=== PATIENT | male | born 1970 | race Caucasian/White ===

== ENCOUNTER 2022-02-04 06:58 | Outpatient (REF) | payer OTHER, SELFPAY ==
[2022-02-04 11:54] LABS: MANUAL DIFF FLAG NO
[2022-02-04 11:56] LABS: Appearance Urine CLOUDY; Color Urine YELLOW; Glucose Urine UA NEG (NEG); Leukocyte Esterase Urine NEG (NEG); Nitrite Urine NEG (NEG); PH 5.5 (5.0-8.0); Specific Gravity - Urine >= 1.030 (1.005-1.025); UACC Culture Trigger NO; Urine Blood TRACE (NEG); Urine Ketones 15 MG/DL (NEG); Urine Protein NEG (NEG-TRACE)
[2022-02-04 12:08] LABS: Basophils Absolute Auto 0.1 X10*3/uL (0.0-0.2); Basophils Percent Auto 1.3 % (0-2); Eosinophils Absolute Auto 0.1 X10*3/uL (0.0-0.4); Eosinophils Percent Auto 2.4 % (0-4); Hematocrit 44.4 % (42.0-52.0); Imm Gran Abs Auto 0.01 X10*3/uL (0.00-0.03); Imm Gran Pct Auto 0.2 % (0.0-0.4); Lymphocytes Absolute Auto 1.2 X10*3/uL (1.2-4.9); Lymphocytes Percent Auto 25.8 % (20-40); Mean Corpuscular HGB Conc 33.8 g/dl (31.0-36.0); Mean Corpuscular Volume 82.8 fL (80.0-98.0); Mean Platelet Volume 9.6 fL (9.4-12.4); Monocytes Absolute Auto 0.5 X10*3/uL (0.1-1.2); Monocytes Percent Auto 11.2 % (2-11); Neutrophils Absolute Auto 2.7 x10*3/uL (2.0-8.3); Neutrophils Percent Auto 59.1 % (45-73); Platelet Count 308 X10*3/uL (160-400); Red Blood Count 5.36 X10*6/uL (4.60-5.80); White Blood Count 4.5 X10*3/uL (4.8-10.8)
[2022-02-04 12:30] LABS: Alanine Aminotransferase 16 U/L (0-40); Albumin Level 4.5 g/dL (3.5-5.0); Alkaline Phosphatase 72 U/L (39-117); Anion Gap 15 (12-20); Aspartate Amino Transferase 15 U/L (5-37); Blood Urea Nitrogen 15 mg/dL (9-16); Calcium 9.3 mg/dL (8.4-10.2); Carbon Dioxide 24 mmol/L (22-29); Chloride 106 mmol/L (96-108); Cholesterol 187 mg/dL; Estimated Glomerular Filt Rate > 60; Glucose Fasting 89 mg/dL (60-99); HDL Cholesterol 39 mg/dL; LDL Cholesterol Calculated 128 mg/dl; Potassium 4.7 mmol/L (3.3-5.1); Sodium 140 mmol/L (135-145); Total Protein 6.8 g/dL (6.5-8.0); Triglycerides 100 mg/dL
[2022-02-04 12:36] LABS: Amorphous Sediment Urine 4+ /LPF; RBC Urine 0-2 /HPF (0)
[2022-02-04 12:42] LABS: Prostate Specific Antigen Scr 1.22 ng/mL (<0.05-4.0); TSH reflex Free T4 1.33 uIU/mL (0.32-4.0)
== END 2022-02-04 06:59 | disposition home or self-care (01) ==
LOC: HO.HMGCLDS 06:58
PROVIDERS: PCP Nurse Practitioner Family; Visit Provider Nurse Practitioner Family
DX: Z00.00 Encounter for general adult medical examination without abnormal findings (principal); Z12.5 Encounter for screening for malignant neoplasm of prostate
CPT/HCPCS: 36415; 80053; 80061; 81001; 84153; 84443; 85025

== ENCOUNTER 2022-03-18 06:40 | Outpatient (REF) | payer OTHER, SELFPAY ==
[2022-03-18 11:18] LABS: Urine Cytology See Pathology rpt
[2022-03-18 11:24] LABS: Appearance Urine Turbid; Color Urine Yellow; Glucose Urine UA Negative (Negative); Leukocyte Esterase Urine Negative (Negative); Nitrite Urine Negative (Negative); PH 5.5 (5.0-9.0); Specific Gravity - Urine 1.025 (1.005-1.025); Urine Blood Negative (Negative); Urine Ketones Negative (Negative); Urine Protein Negative (Neg-Trace)
[2022-03-18 11:54] LABS: Bilirubin Direct 0.3 mg/dL (0.0-0.5)
== END 2022-03-18 06:41 | disposition home or self-care (01) ==
LOC: HO.HMGCLDS 06:40
PROVIDERS: PCP Nurse Practitioner Family; Visit Provider Nurse Practitioner Family
DX: Z00.00 Encounter for general adult medical examination without abnormal findings (principal); R31.29 Other microscopic hematuria; R17 Unspecified jaundice
CPT/HCPCS: 36415; 81003; 82247; 82248; 87086; 88112

== ENCOUNTER 2022-07-05 10:04 | Outpatient (REF) | payer OTHER, SELFPAY ==
--- NOTE | ~2022-07-05 | XR_ITS ---
EXAMINATION: XR LUMBOSACRAL SPINE CLINICAL INFORMATION: Low back pain. COMPARISON: None TECHNIQUE: Three views of the lumbosacral spine. FINDINGS: No acute compression deformity or subluxation. Mild to moderate disc height loss and facet arthropathy at L5-S1. SI joints are symmetric. No significant paraspinal soft tissue abnormalities. XR/XR lumbar spine 2-3V IMPRESSION: 1. No acute compression deformity or subluxation. 2. Mild to moderate disc height loss and facet arthropathy at L5-S1.
== END 2022-07-05 10:05 | disposition home or self-care (01) ==
LOC: HO.HMGCX 10:04
PROVIDERS: Visit Provider Nurse Practitioner Family
DX: M54.50 Low back pain, unspecified (principal); G89.29 Other chronic pain
CPT/HCPCS: 72100

== ENCOUNTER 2022-10-13 11:17 | Outpatient (REF) | payer OTHER, SELFPAY ==
[2022-10-13 13:53] LABS: MANUAL DIFF FLAG NO
[2022-10-13 14:04] LABS: Basophils Absolute Auto 0.1 X10*3/uL (0.0-0.2); Basophils Percent Auto 0.9 % (0-2); Eosinophils Absolute Auto 0.1 X10*3/uL (0.0-0.4); Eosinophils Percent Auto 2.1 % (0-4); Hemoglobin 14.7 g/dl (14.0-18.0); Imm Gran Abs Auto 0.01 X10*3/uL (0.00-0.03); Imm Gran Pct Auto 0.2 % (0.0-0.4); Lymphocytes Absolute Auto 1.4 X10*3/uL (1.2-4.9); Lymphocytes Percent Auto 24.6 % (20-40); Mean Corpuscular Hemoglobin 25.2 pg (27.0-33.0); Mean Corpuscular Volume 78.9 fL (80.0-98.0); Mean Platelet Volume 9.5 fL (9.4-12.4); Monocytes Absolute Auto 0.6 X10*3/uL (0.1-1.2); Monocytes Percent Auto 10.8 % (2-11); Neutrophils Absolute Auto 3.5 x10*3/uL (2.0-8.3); Neutrophils Percent Auto 61.4 % (45-73); Platelet Count 357 X10*3/uL (160-400); Red Blood Count 5.83 X10*6/uL (4.60-5.80); Red Cell Distribution Width 14.2 % (11.0-16.0); White Blood Count 5.7 X10*3/uL (4.8-10.8)
[2022-10-13 14:25] LABS: Alanine Aminotransferase 14 U/L (0-40); Albumin Level 4.3 g/dL (3.5-5.0); Alkaline Phosphatase 86 U/L (39-117); Anion Gap 9 (12-20); Aspartate Amino Transferase 12 U/L (5-37); Bilirubin Total 1.4 mg/dL (0.0-1.0); Blood Urea Nitrogen 10 mg/dL (9-16); Calcium 9.7 mg/dL (8.4-10.2); Carbon Dioxide 32 mmol/L (22-29); Chloride 105 mmol/L (96-108); Estimated Glomerular Filt Rate > 60; Glucose Random 99 mg/dL (60-115); Iron 86 mcg/dL (45-160); Percent Iron Saturation 20 % (15-50); Potassium 4.5 mmol/L (3.3-5.1); Sodium 141 mmol/L (135-145); Total Iron Binding Capacity 438 mcg/dL (228-428); Total Protein 6.5 g/dL (6.5-8.0); Unsaturated Iron Binding 352 ug/dL
[2022-10-13 14:57] LABS: Ferritin 10 ng/mL (20-250); Folate 5.6 ng/mL (> or = 4.0); TSH reflex Free T4 2.14 uIU/mL (0.32-4.0); Vitamin B12 505 pg/mL (200-900)
[2022-10-16 04:19] LABS: A. Phagocytphilium DNA,RT-PCR NOT DETECTED (NOT DETECTED); Babesia Microti DNA, RT-PCR NOT DETECTED (NOT DETECTED); Borrelia Miyamotoi,DNA RT-PCR NOT DETECTED (NOT DETECTED); E.Chaffeensis DNA RT-PCR NOT DETECTED (NOT DETECTED); Lyme(Borrelia ssp)DNA RT-PCR NOT DETECTED (NOT DETECTED)
== END 2022-10-13 11:18 | disposition home or self-care (01) ==
LOC: HO.HMGCLDS 11:17
PROVIDERS: PCP Nurse Practitioner Family; Visit Provider Nurse Practitioner Family
DX: R53.83 Other fatigue (principal); E61.1 Iron deficiency; T14.8XXA Other injury of unspecified body region, initial encounter; W57.XXXA Bitten or stung by nonvenomous insect and other nonvenomous arthropods, initial encounter; Y93.9 Activity, unspecified; Y92.9 Unspecified place or not applicable; Y99.9 Unspecified external cause status
CPT/HCPCS: 36415; 80053; 82607; 82728; 82746; 83540; 84443; 85025; 87798; 87801

== ENCOUNTER 2022-10-24 09:00 | Outpatient (RCR) | payer OTHER, SELFPAY ==
--- NOTE | 2022-07-25 08:57 | MHC.PT.EP ---
[facility] [place] Office [place] Office [place] Office [address] Rebeca Lo [address] [phone] F: [phone] F: [phone] F: [phone] F: [phone] Physical Therapy Plan of Care Date of Evaluation: Date of Surgery: Diagnosis: low back pain Assessment: Patient is a 52 year old R handed male who presents with s/s consistent with low back pain. He works with daily job demands including seated work, woodworking, sapp playing. Patient past medical history includes meniscal surgeries with no residual symptoms. Current impairments include pain, posture, ROM, strength, flexibility, activity tolerance and functional mobility. Functional limitations include decreased ability to stand, bend, lift, walk, wood work, play music and perform more strenuous activities. Patient is motivated with good rehab potential. Skilled PT will address impairments and functional limitations in order to achieve goals. Frequency and Duration: The patient will be seen 2x/week for 5 weeks Short Term Goals: I with HEP - 2 weeks Pain free rotation to 75% b/l - 3 weeks 90/90 lacking 20 or less - 3 weeks Mcc Goals: Oswestry 12% or less - 5 weeks pain with ADLs, sitting or standing 1 hour - 3/10 or less - 5 weeks Able to resume hobbies 3/10 pain or less - 5 weeks Treatment Plan: Modalities to reduce pain, spasms and effusion. Manual therapy to restore motion and function. Therapeutic exercise to improve strength and flexibility. Neuromuscular re-education for posture and balance. Therapeutic activities to return to functional activities of daily living. Electronically signed by: Nico Deleon, PT Please sign and return to therapist. Thank you for your referral.
--- NOTE | 2022-12-12 08:18 | MHC.PT.DC ---
[facility] [place] Office [place] Office [place] Office [address] Rebeca Lo [address] [phone] F: [phone] F: [phone] F: [phone] F: [phone] Physical Therapy Discharge Report Diagnosis: low back pain Date of Surgery: Date of Evaluation: 07/25/22 Date of Discharge: 11/07/22 Treatments to Date: 5 Cancellations to Date: No Shows to Date: Discharge Status: Improved Function Independent with HEP Discharge Summary: Pt elected to continue with HEP after last visit and time off. 10/24/22: pain free rotation to 75%. 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 09/26/22: pt responding very well. sore from [place] at home. I with HEP at this time. we will progress as tolerated NV. 09/05/22: reduced program today due to a slip/fall while shoveling snow. sore shoulder, back and knee. assess response Nv. encouraged him to ice at home. 08/29/22: pt has been progressing well with HEP until the last week. We did add to program today and will progress HEP Nv. Patient is a 52 year old R handed male who presents with s/s consistent with low back pain. He works with daily job demands including seated work, woodworking, sapp playing. Patient past medical history includes meniscal surgeries with no residual symptoms. Current impairments include pain, posture, ROM, strength, flexibility, activity tolerance and functional mobility. Functional limitations include decreased ability to stand, bend, lift, walk, wood work, play music and perform more strenuous activities. Patient is motivated with good rehab potential. Skilled PT will address impairments and functional limitations in order to achieve goals. Electronically signed by: Nico Deleon, PT Please sign and return to therapist. Thank you for your referral.
== END 2022-12-12 09:30 | disposition home or self-care (01) ==
LOC: HO.PTCHIC 09:00
PROVIDERS: PCP Nurse Practitioner Family; Visit Provider Nurse Practitioner Family
DX: M54.50 Low back pain, unspecified (principal); G89.29 Other chronic pain
CPT/HCPCS: 97110; 97161

== ENCOUNTER 2022-12-12 07:45 | Day surgery (SDC) | payer OTHER, SELFPAY ==
[2022-12-08 12:19] VITALS: BMI 40.7
[2022-12-12 07:58] VITALS: BP 141/86; PULSE 68; RESP 16; TEMP 36.6; O2SAT 96; BMI 39.8
[2022-12-12] MEDS: Lactated Ringers 1,000 ML 100 ML IVCONT (08:16)
--- NOTE | 2022-12-12 09:20 | HO.ANESPROP2 ---
Documented by User: Giovanna Owen NP 12/09/22 12:41 HPI - Anesthesia Eval Consult details Narrative: 52yo M for Colonoscopy PMFSH Active Problems Active Problems: All Active Problems (Updated 12/08/22 @ 12:16 by Jennifer Jhaveri RN) Screening for colon cancer (Acute) Physical exam (Acute) Screening PSA (prostate specific antigen) (Acute) Elevated bilirubin (Acute) Microscopic hematuria (Acute) Pre-op examination (Acute) PTSD (post-traumatic stress disorder) (Acute) Chronic lower back pain (Acute) Fatigue (Acute) Iron deficiency (Acute) Past Medical History Medical History (Updated 12/08/22 @ 12:16 by Jennifer Jhaveri RN) Chronic low back pain Iron deficiency anemia PTSD (post-traumatic stress disorder) Family History Family History Father Mental health disorder Mother Mental health disorder Sister Mental health disorder Surgical History Surgical History History of appendectomy History of hemorrhoidectomy S/P lateral meniscal repair S/P tendon repair Social History Social History Housing: House Patient Tobacco Use Status: Former Tobacco user Quit Date: quit 12 years ago e-Cigarette/Vaping Use: Never Used Second Hand Smoke Exposure: No Use of substances other than those prescribed or required for medical reasons: No Advance Directives: No Advance Directives Information Provided: Yes Current occupational status: employed Current occupation: [employer] Current occupational exposures/hazards: Yes Cognitive needs: No Hearing needs: No Vision needs: No Meds Allergies Allergy/AdvReac Type Severity Reaction Status Date / Time codeine Allergy Unknown SOB, Verified 10/13/22 12:09 throat swelling Exam Exam Date and Time: December 09, 2022 1240 Height,Weight and Vital Signs: Height 6 ft 2 in Weight 143.789 kg Pertinent Lab Results Pertinent Lab Results: Laboratory Tests 10/13/22 10/13/22 11:23 11:23 WBC 5.7 Hgb 14.7 Hct 46.0 Plt Count 357 Sodium 141 Potassium 4.5 Chloride 105 Carbon Dioxide 32 H BUN 10 Creatinine 0.98 Assessment and Plan Assessment Anesthesia Assessment: Chart Reviewed Documented by User: Lori Hawley DO 12/12/22 09:42 [facility] Past Medical History Medical History (Updated 12/08/22 @ 12:16 by Jennifer Jhaveri RN) Chronic low back pain Iron deficiency anemia PTSD (post-traumatic stress disorder) Family History Family History Father Mental health disorder Mother Mental health disorder Sister Mental health disorder Surgical History Surgical History History of appendectomy History of hemorrhoidectomy S/P lateral meniscal repair S/P tendon repair History of Problems with Anesthesia: No Social History Social History Housing: House Patient Tobacco Use Status: Former Tobacco user Quit Date: quit 12 years ago e-Cigarette/Vaping Use: Never Used Second Hand Smoke Exposure: No Use of substances other than those prescribed or required for medical reasons: No Advance Directives: No Advance Directives Information Provided: Yes Current occupational status: employed Current occupation: [employer] Current occupational exposures/hazards: Yes Cognitive needs: No Hearing needs: No Vision needs: No Meds Allergies Allergy/AdvReac Type Severity Reaction Status Date / Time codeine Allergy Unknown SOB, Verified 10/13/22 12:09 throat swelling Exam Exam Date and Time: December 12, 2022 0920 Height,Weight and Vital Signs: Vital Signs Temperature 97.8 F 12/12/22 07:58 Pulse Rate 68 12/12/22 07:58 Respiratory Rate 16 12/12/22 07:58 Blood Pressure 141/86 H 12/12/22 07:58 Pulse Oximetry 96 12/12/22 07:58 Oxygen Delivery Method Room Air 12/12/22 07:58 Temperature 97.8 F 12/12/22 07:58 Pulse Rate 68 12/12/22 07:58 Respiratory Rate 16 12/12/22 07:58 Blood Pressure 141/86 H 12/12/22 07:58 Pulse Oximetry 96 12/12/22 07:58 Oxygen Delivery Method Room Air 12/12/22 07:58 Height 6 ft 2 in Weight 143.789 kg Airway Mallampati Class: III TM Dist: >3cm Neck ROM: Full Loose/Missing/Broken Teeth: No Heart: S1S2 Lungs: CTAB Assessment and Plan Assessment Anesthesia Assessment: Anesthesia Plan Discussed and Chart Reviewed Final Anesthetic Review History of Problems with Anesthesia: No NPO: Yes ASA Class: II Final Preanesthetic Review: No Changes in Pt Med Stat, Meds/Allgs Chart Reviewed, Consent Obtained/Reviewed and Anes Risks/Benef Reviewed Patient Risk: Low Procedure Risk: Low Anesthetic Plan Anesthetic Plan: MAC: and Agree w/ Assess. and Plan Disposition: Standard PACU
--- NOTE | 2022-12-12 09:20 | MHC.SHP ---
Pre-Procedural Eval Section A Date of Service: 12/12/22 The patient is an INPATIENT: No The History & Physical has been completed within 30 days and I have reviewed it.: No Section B Chief Complaint: Encounter for screening for malignant neoplasm of Relevant Family History (Specify if Yes): No Relevant Social History: Tobacco Use ( former smoker) Present Medications: see Short Stay Collaborative assessment Medical History: Significant History ( microscopic hematuria, elevated bilirubin) History of Previous Operations: Relevant previous surgery/procedure and date(s) (History of appendectomy History of hemorrhoidectomy S/P lateral meniscal repair S/P tendon repair) Allergies: Allergies Allergy/AdvReac Type Severity Reaction Status Date / Time codeine Allergy Unknown SOB, Verified 10/13/22 12:09 throat swelling Review of Systems Sugical H&P ROS: Negative: Constitution, Cardiovascular, Respiratory and Gastrointestinal Exam Surgical H&P Exam: Normal: Heart, Normal: Lungs, Normal: Extremities and Normal: Abdomen Plan Diagnosis/Plan: Unchanged I have reviewed the history and physical and performed a pertinent physical examination on my patient. No changes have occurred unless specified. Time Spent With Patient Time: Total time managing care of this patient today ____ minutes.
--- NOTE | 2022-12-12 09:28 | P.OP_ITS ---
Operative Note Operative Note Date of Service: 12/12/22 Narrative: COLONOSCOPY TILL CECUM Pre-op diagnosis: colon cancer screening, rectal bleeding Post-op diagnosis:? diverticulosis, hemorrhoids, perianal warts Endoscopist:? George Lester MD Anesthesia:?MAC Consent: Indications for the procedure and potential complications of bleeding, perforation, reaction to medications and missed diagnosis were discussed with the patient and informed consent was obtained. Instrument: Olympus CF H 190 L variable stiffness adult colonoscope Monitoring: Vital signs and clinical assessment, intermittent blood pressure monitoring, continuous EKG monitoring, Pulse oximetry and Carbon Dioxide monitoring were done throughout the procedure. Please see anesthesia flowsheet. Colon withdrawl time was 15 minutes. Procedure: The patient was placed in the left lateral decubitis position and pre-procedure medications were administered. After a digital rectal examination of the ano-rectum, the video colonoscope was inserted into the rectum and advanced through the colon to the cecum. The colonoscope was slowly withdrawn in a retrograde panoramic fashion and the colon mucosa was carefully examined including a retroflexed view of the rectum. Findings and interventions are described below. Procedure Difficulty: Without difficulty Findings: Terminal Ileum: Not evaluated Cecum: Normal Ascending Colon: Normal Transverse Colon: Normal Descending Colon: Moderate diverticulosis Sigmoid Colon: Moderate diverticulosis Rectum: Normal Ano-rectum: Large internal hemorrhoids and aubree-anal warts Colon preparation: Good Impression and Post Procedure Diagnosis: Colonoscopy Findings: No polyps removed Moderate diverticulosis seen in the left colon Large hemorrhoids on retroflexed exam. Perianal warts were noted. Plan: Pt referred to [facility] for management of anal warts. Repeat Colonoscopy 10 years. Above findings were reviewed with the patient and Genital Warts, Hemorrhoids and diverticulosis handouts were given in the discharge area
[2022-12-12 10:00] VITALS: BP 119/68; PULSE 70; RESP 18; TEMP 36.4; O2SAT 95
[2022-12-12 10:15] VITALS: BP 119/73; PULSE 76; RESP 18; O2SAT 97
--- NOTE | 2022-12-12 11:11 | PC.NURSE ---
all discharge instructions completed by Dionna MARTELL in medical day stay.
== END 2022-12-12 11:12 | disposition home or self-care (01) ==
PROVIDERS: PCP Nurse Practitioner Family; Visit Provider Internal Medicine Gastroenterology
PROC: 0DJD8ZZ Inspection of Lower Intestinal Tract, Via Natural or Artificial Opening Endoscopic (ICD-10-PCS; CPT 45378; principal; 2022-12-12 09:30)
DX: Z12.11 Encounter for screening for malignant neoplasm of colon (principal); K57.30 Diverticulosis of large intestine without perforation or abscess without bleeding; K64.8 Other hemorrhoids; A63.0 Anogenital (venereal) warts; R12 Heartburn; R31.29 Other microscopic hematuria; D50.9 Iron deficiency anemia, unspecified; R53.83 Other fatigue; E80.7 Disorder of bilirubin metabolism, unspecified; F43.10 Post-traumatic stress disorder, unspecified; G89.29 Other chronic pain; M54.50 Low back pain, unspecified; Z88.8 Allergy status to other drugs, medicaments and biological substances; Z87.891 Personal history of nicotine dependence
CPT/HCPCS: 45378

== ENCOUNTER 2023-01-12 08:44 | Outpatient (AMB) | payer OTHER, SELFPAY ==
--- NOTE | 2023-01-12 08:46 | A.OFFVIS_ITS ---
Intake Vital Signs 01/12/23 09:08 Height 6 ft 2 in Weight 307 lb BMI 39.4 BP 145/90 H Blood Pressure Location Rt brachial Position Sitting Pulse 79 Intake Visit Reasons: Anogenital (venereal) warts Intake Note: This patient presents for an assessment for anogenital (venereal) warts. Patient c/o; denies pain. Senior Clinician Required: No Accompanied by: Self / Same As Patient Allergies codeine Allergy (Unknown, Verified 01/12/23 09:10) SOB, throat swelling Medication List - Last Reconciled 01/12/23 by Segundo Irizarry MD No Known Home Meds HPI Anogenital (venereal) warts HPI Details 52-year-old male referred for anal lesions. He had undergone colonoscopy for screening with Dr. Will 3 weeks ago and was noted to have anal lesions. This appeared to be verrucous. He says he has had and swelling of these areas for many years. He denies significant drainage. He does describe some discomfort as the lesions are good sized. He denies GI complaints. [facility] Medical History (Updated 01/12/23 @ 09:21 by Segundo Irizarry MD) Anal lesion Chronic low back pain Iron deficiency anemia PTSD (post-traumatic stress disorder) Surgical History History of appendectomy History of hemorrhoidectomy S/P lateral meniscal repair S/P tendon repair Family History Father Mental health disorder Mother Mental health disorder Sister Mental health disorder Social History Housing: House Patient Tobacco Use Status: Former Tobacco user Quit Date: quit 12 years ago e-Cigarette/Vaping Use: Never Used Second Hand Smoke Exposure: No Current occupational status: employed Current occupation: [employer] Current occupational exposures/hazards: Yes Cognitive needs: No Hearing needs: No Vision needs: No Review of Systems Const Denies chills and Denies fever(s) Card Denies chest pain, Denies dyspnea and Denies dyspnea on exertion Resp Denies cough, Denies dyspnea and Denies dyspnea on exertion GI Denies hematochezia and Denies change in bowel habits Denies hematuria and Denies difficulty urinating Musc Denies back pain and Denies limited range of motion Neuro Denies focal weakness and Denies convulsions Psych Denies depression and Denies mood swings Physical Exam Const General: comfortable and no acute distress Orientation/consciousness: patient oriented x3 Neck Neck: Yes no lymphadenopathy Resp Auscultation: clear to auscultation bilaterally Cardio Rhythm: regular rhythm GI Other: Rectal exam shows large fleshy, irregularly looking lesions on the anal verge, about 2.5 cm in widest dimension, left and right side Palpation (GI): Soft to palpation, nontender and no guarding Neuro General: patient oriented x3 Assessment & Plan Assessment & Plan (1) Anal lesion: Code(s): K62.9 - Disease of anus and rectum, unspecified Plan: He has large anal lesions as described above. This appear to be verrucous chronically sclerosed hemorrhoids. He does describe occasional swelling discomfort. He wants to proceed with excision. I explained him the technique of exam under anesthesia and excision of this anal canal lesions. I reviewed the risks including but not limited to bleeding, infections, pain, poor healing, as well as the benefits and alternatives. He understands and wants to proceed I also explained to him what to expect postoperatively. Coding Level of Care Code New Pt Level 3 (32972) Diagnoses Anal lesion K62.9
[2023-01-12 09:08] VITALS: BP 145/90; PULSE 79; BMI 39.4
== END 2023-01-12 09:20 | disposition home or self-care (01) ==
PROVIDERS: PCP Nurse Practitioner Family; Visit Provider Surgery
DX: K62.9 Disease of anus and rectum, unspecified (principal)
CPT/HCPCS: 99203

== ENCOUNTER → 2023-01-12 08:44 | Outpatient (BNVA) | payer OTHER, SELFPAY | PROVIDERS: PCP Nurse Practitioner Family; Visit Provider Surgery ==

== ENCOUNTER 2023-01-27 08:16 | Day surgery (SDC) | payer OTHER, SELFPAY ==
[2023-01-25 10:48] VITALS: BMI 39.4
--- NOTE | 2023-01-26 09:33 | P.CONAN_ITS ---
Documented by User: Giovanna Owen NP 01/26/23 09:34 HPI - Anesthesia Eval Consult details Narrative: 52yo M for EUA,Excision Anal Lesions PMFSH Active Problems Active Problems: All Active Problems (Updated 01/12/23 @ 09:21 by Segundo Irizarry MD) Screening for colon cancer (Acute) Physical exam (Acute) Screening PSA (prostate specific antigen) (Acute) Elevated bilirubin (Acute) Microscopic hematuria (Acute) Pre-op examination (Acute) PTSD (post-traumatic stress disorder) (Acute) Chronic lower back pain (Acute) Fatigue (Acute) Iron deficiency (Acute) Anal warts (Acute) Anal lesion (Acute) Past Medical History Medical History (Updated 01/12/23 @ 09:21 by Segundo Irizarry MD) Anal lesion Chronic low back pain Iron deficiency anemia PTSD (post-traumatic stress disorder) Family History Family History Father Mental health disorder Mother Mental health disorder Sister Mental health disorder Surgical History Surgical History (Updated 01/25/23 @ 10:42 by Yessica Milan RN) History of appendectomy History of hemorrhoidectomy Hx of colonoscopy S/P lateral meniscal repair S/P tendon repair History of Problems with Anesthesia: No Social History Social History Housing: House Patient Tobacco Use Status: Former Tobacco user Quit Date: 12 years ago e-Cigarette/Vaping Use: Never Used Second Hand Smoke Exposure: No Use of substances other than those prescribed or required for medical reasons: No Are you DNR?: No Advance Directives: No Advance Directives Information Provided: Yes Current occupational status: employed Current occupation: [employer] Current occupational exposures/hazards: Yes Cognitive needs: No Hearing needs: No Vision needs: No Meds Allergies Allergy/AdvReac Type Severity Reaction Status Date / Time codeine Allergy Unknown SOB, Verified 01/12/23 09:10 throat swelling Home Medications Medication Instructions Recorded Confirmed Last Taken Type ferrous sulfate 325 mg (65 mg 325 mg PO DAILY 01/27/23 01/27/23 01/26/23 History iron) tablet (iron) Exam Exam Date and Time: January 26, 2023 0933 Height,Weight and Vital Signs: Height 6 ft 2 in Weight 139.253 kg Pertinent Lab Results Pertinent Lab Results: Laboratory Tests 10/13/22 10/13/22 11:23 11:23 WBC 5.7 Hgb 14.7 Hct 46.0 Plt Count 357 Sodium 141 Potassium 4.5 Chloride 105 Carbon Dioxide 32 H BUN 10 Creatinine 0.98 Assessment and Plan Assessment Anesthesia Assessment: Chart Reviewed Final Anesthetic Review History of Problems with Anesthesia: No Documented by User: Medina Angeles MD 01/27/23 11:09 PMFSH Past Medical History Medical History (Updated 01/12/23 @ 09:21 by Segundo Irizarry MD) Anal lesion Chronic low back pain Iron deficiency anemia PTSD (post-traumatic stress disorder) Family History Family History Father Mental health disorder Mother Mental health disorder Sister Mental health disorder Family history of problems with anesthesia: No Surgical History Surgical History (Updated 01/25/23 @ 10:42 by Yessica Milan RN) History of appendectomy History of hemorrhoidectomy Hx of colonoscopy S/P lateral meniscal repair S/P tendon repair Social History Social History Housing: House Patient Tobacco Use Status: Former Tobacco user Quit Date: 12 years ago e-Cigarette/Vaping Use: Never Used Second Hand Smoke Exposure: No Use of substances other than those prescribed or required for medical reasons: No Are you DNR?: No Advance Directives: No Advance Directives Information Provided: Yes Current occupational status: employed Current occupation: [employer] Current occupational exposures/hazards: Yes Cognitive needs: No Hearing needs: No Vision needs: No Meds Allergies Allergy/AdvReac Type Severity Reaction Status Date / Time codeine Allergy Unknown SOB, Verified 01/12/23 09:10 throat swelling Home Medications Medication Instructions Recorded Confirmed Last Taken Type ferrous sulfate 325 mg (65 mg 325 mg PO DAILY 01/27/23 01/27/23 01/26/23 History iron) tablet (iron) Exam Airway Mallampati Class: II TM Dist: >3cm Neck ROM: Full Heart: rrr Lungs: cta Assessment and Plan Assessment Anesthesia Assessment: Anesthesia Plan Discussed Final Anesthetic Review Family History of Problems with Anesthesia: No NPO: Yes ASA Class: II Final Preanesthetic Review: No Changes in Pt Med Stat, Meds/Allgs Chart Reviewed, Consent Obtained/Reviewed and Anes Risks/Benef Reviewed Patient Risk: Low Procedure Risk: Low Anesthetic Plan Anesthetic Plan: GA Disposition: Standard PACU
[2023-01-27] VITALS (9 sets, daily range): BP systolic 111–130; BP diastolic 60–83; PULSE 54–66; RESP 16–18; TEMP 36.3–36.8; O2SAT 94–97; BMI 83.2; BMI 37.7
[2023-01-27] MEDS: Lactated Ringers 1,000 ML 100 ML IVCONT (09:40)
--- NOTE | 2023-01-27 11:03 | MHC.SHP ---
Pre-Procedural Eval Section A Date of Service: 01/27/23 The patient is an INPATIENT: No Changes since office visit: No Cold of Flu in the past 2 weeks, No New Medical Problems, No Changes in Medication and No Patient answered all questions The History & Physical has been completed within 30 days and I have reviewed it.: Yes Section B Chief Complaint: Disease of anus and rectum, unspecified Allergies: Allergies Allergy/AdvReac Type Severity Reaction Status Date / Time codeine Allergy Unknown SOB, Verified 01/12/23 09:10 throat swelling Plan I have reviewed the history and physical and performed a pertinent physical examination on my patient. No changes have occurred unless specified. Time Spent With Patient Time: Total time managing care of this patient today ____ minutes.
--- NOTE | 2023-01-27 12:43 | W.PM.OPN ---
Operative Note Operative Note Date of Service: 01/27/23 Narrative: Preop diagnosis: Perianal lesions Postop diagnosis: Large internal external hemorrhoids, with of his prolapse and areas with chronic sclerosis Procedure: Exam under anesthesia hemorrhoidectomy x1 large column Surgeon: Segundo Irizarry MD The patient is a 52-year-old male who was initially referred to me because of perianal lesions that appeared to be verrucous. These were large, circumferential lesions and I had scheduled him for exam under anesthesia possible excision as well as hemorrhoidectomy as these appeared to be chronically sclerosed hemorrhoid tissue as well. He understood the technique of the procedure as well as the risks, benefits, and alternatives He was brought to the operating room. He was placed in prone angel-knife position under general anesthesia via endotracheal tube. The buttocks were retracted with wide tape laterally. The perianal area was prepped draped in the usual sterile fashion. A surgical time-out was done. The patient received Cefotan 2 g IV preoperatively Examination of the anal orifice with retraction buttock showed very large external hemorrhoids with note of prolapsing component. This appeared to be multiple with areas of chronic sclerosis that would resemble verrucous lesions. I inserted Bernard Salcedo retractor and examined the anal canal circumferentially. This hemorrhoidal columns were noted to be very large on both sides and multiple. I therefore felt that we would have to do a staged procedure to remove these hemorrhoidal columns. There was 1 particular large hemorrhoidal column on the left and applied Russell grasper to bring this out into the field. I made a naegzv-tv-pmyry stitch at the pedicle in the proximal anal canal using a chromic 3-0. I made an incision around this hemorrhoidal column although with the perianal skin using a blade 15. I excised this hemorrhoidal column above the plane of sphincters along this incision. Expected leak, there was note of a large amount of bleeding because of the size of the hemorrhoid. I placed a running 3-0 stitch. I had to apply multiple additional chromic 3-0 hemostatic [id number] sutures to achieve hemostasis on the incision line. Again, there was note of a very bulky hemorrhoidal column that had been removed so there was note of a lot of bleeding and we had to fly multiple sutures to achieve good hemostasis. I observed for few minutes and once was this was confirmed, proceeded then position a rolled Gelfoam into the anal canal for additional hemostasis. I infiltrated the perianal with Marcaine 0.5% for postop analgesia. At this time, there was only 1 large hemorrhoidal column this was removed. I felt that I had to do a staged procedure to remove the rest of the hemorrhoidal tissue because of the large amount of bleeding and the size of the hemorrhoids. The procedure was completed. He tolerated procedure well. There were no immediate complications. Estimated blood loss about 100 cc. He was extubated and transferred to the recovery room with stable vital signs.
[2023-01-27] MEDS: oxyCODONE HCl Immed Release 5 MG TABLET PO (13:29)
[2023-01-27] MEDS: fentaNYL citrate/PF 100 MCG/2 ML VIAL 25 MCG IVPUSH ×2 (13:30→13:35)
== END 2023-01-27 12:00 | disposition home or self-care (01) ==
PROVIDERS: PCP Nurse Practitioner Family; Visit Provider Surgery
PROC: (CPT 46255; principal; 2023-01-27 10:40)
DX: K64.8 Other hemorrhoids (principal); K64.4 Residual hemorrhoidal skin tags; Z88.8 Allergy status to other drugs, medicaments and biological substances; D50.9 Iron deficiency anemia, unspecified; Z79.899 Other long term (current) drug therapy; Z98.890 Other specified postprocedural states; Z87.891 Personal history of nicotine dependence
CPT/HCPCS: 46255; 88304; J0330; J1100; J2250; J2405; J2795; J3010

== ENCOUNTER → 2023-01-27 08:16 | Outpatient (BNV) | payer OTHER, SELFPAY | PROVIDERS: PCP Nurse Practitioner Family; Visit Provider Surgery | DX: K64.9 Unspecified hemorrhoids (principal) | CPT/HCPCS: 46946 ==

== ENCOUNTER 2023-02-02 16:15 | Outpatient (AMB) | payer OTHER, SELFPAY ==
--- NOTE | 2023-02-02 16:26 | MHC.PC.OV ---
Vital Signs 02/02/23 16:27 Height 6 ft 2 in Weight 308 lb BMI 39.5 BP 122/80 Blood Pressure Location Lt brachial Position Sitting Pulse 63 Pulse Source Pulse Oximeter Pulse Oximetry (%) 98 Oxygen Delivery Method Room Air Intake Visit Reasons: PE Allergies codeine Allergy (Unknown, Verified 02/02/23 16:29) SOB, throat swelling Tobacco use date assessed: 02/02/23 Dental Screening Dental Screen Date: 02/02/23 Did you have a dental visit in the last 12 months?: Yes Did you have a dental problem in the last 6 months where you did not have access to dental care?: No Was dental information given to patient?: Patient has dentist HPI PE HPI Details Pt is here for a PE. Will order labs. Colon screen is up to date. hemorrhoidectomy performed on 01/27. Pt reports it is very uncomfortable, but percocet does help, soft diet/colace. He does get some spotting. pt is seeing the GS in 7 days, did not not want me to examine this today. denies any fevers, chills, N/V, hemorrhaging, HPI Comments History of Present Illness Details Pt is here for a PE. colonoscopy is up to date [facility] Medical History Anal lesion Chronic low back pain Iron deficiency anemia PTSD (post-traumatic stress disorder) Surgical History History of appendectomy History of hemorrhoidectomy Hx of colonoscopy S/P lateral meniscal repair S/P tendon repair Family History Father Mental health disorder Mother Mental health disorder Sister Mental health disorder Social History Housing: House Patient Tobacco Use Status: Former Tobacco user Quit Date: 12 years ago e-Cigarette/Vaping Use: Never Used Second Hand Smoke Exposure: No Current occupational status: employed Current occupation: [employer] Current occupational exposures/hazards: Yes Cognitive needs: No Hearing needs: No Vision needs: No Questionnaire Thrive Questionnaire Date Thrive assessed: 02/01/22 I am a: Patient What is your living situation today?: I have a steady place to live Within the past 12 months, did the food you bought not last and you didn't have the money to get more?: Never true Within the past 12 months, did you worry whether your food would run out before you got money to buy more?: Never true AUDIT C Alcohol Use Questionnaire (AUDIT-C) 1. How often do you have a drink containing alcohol?: Monthly or less 2. How many drinks containing alcohol do you have on a typical day when you are drinking?: 1 or 2 3. How often do you have six or more drinks on one occasion?: Never Total Score: 1 Score Reviewed/Action Taken: Yes SIDDHARTH-7 AMB Questionnaire SIDDHARTH-7 Date SIDDHARTH - 7 assessed: 02/01/22 Feeling nervous, anxious, or on edge: 2 = More than half the days Not being able to stop or control worryin = Several days Worrying too much about different things: 1 = Several days Trouble relaxin = Several days Being so restless that it is hard to sit still: 1 = Several days Becoming easily annoyed or irritable: 2 = More than half the days Feeling afraid as if something awful might happen: 1 = Several days Total SIDDHARTH-7 score (0-4 normal; 5-9 mild; 10-14 moderate; 15-21 severe): 9 Source: Developed by Drs. Jesus Carver, Fatoumata Oquendo, Selwyn Rose and colleagues, with an educational toby from [employer]. SIDDHARTH-7 Assessment Billing SIDDHARTH-7 Assessment Tool: SIDDHARTH-7 Assessment 90058 Review of Systems Const Denies chills and Denies fever(s) Eyes Denies blurry vision ENT Denies vertigo, Denies dizziness and Denies sore throat Card Denies chest pain at rest, Denies chest pain with activity, Denies diaphoresis, Denies dyspnea and Denies dyspnea on exertion Resp Denies cough, Denies dyspnea, Denies dyspnea on exertion and Denies wheezing GI Denies abdominal pain, Denies melena, Denies hematochezia, Denies constipation, Denies diarrhea and Denies loose stools Denies hematuria Musc Denies numbness and Denies tingling Skin/Breast Denies lesions Neuro Denies vertigo, Denies dizziness, Denies numbness and Denies tingling Psych Denies anxiety, Denies depression, Denies homicidal ideation, Denies suicidal ideation and Denies other (substance abuse) Aller/Immun Denies wheezing Physical exam (Primary Care) Vital Signs: Last Vital Signs Pulse 63 02/02/23 16:27 BP 122/80 02/02/23 16:27 Pulse Ox 98 02/02/23 16:27 Oxygen Delivery Method Room Air 02/02/23 16:27 BMI result Body Mass Index 39.5 Tobacco/Smoking Status: Tobacco use Status Tobacco use date assessed 02/02/23 02/02/23 16:31 Patient Tobacco Use Status Former Tobacco user 02/02/23 16:26 e-Cigarette/Vaping Use Never Used 02/02/23 16:26 Thrive Assessment: Date of Thrive Assessment Date Thrive assessed 02/01/22 02/02/23 16:26 Const General: cooperative Nutritional Appearance: well nourished and obese Orientation/consciousness: patient oriented x3 HENMT Head: Yes normal to inspection, Yes normocephalic and Yes atraumatic Ears: TM's normal bilaterally Eyes General: appearance normal, both eyes and all related structures Alignment and Position: alignment normal and position normal Neck Neck: Yes normal visual inspection and Yes no lymphadenopathy Thyroid: Thyroid normal Resp Effort & Inspection: normal respiratory effort Auscultation: clear to auscultation bilaterally Cardio Rate: regular rate Rhythm: regular rhythm Heart sounds: S1 normal heart sound present, S2 normal heart sound present and no murmurs GI Palpation (GI): Soft to palpation and nontender Auscultation: normal bowel sounds Male General Exam: Yes normal external exam Penis: normal penis Scrotum: scrotum normal, testes descended bilaterally and no inguinal hernias Testes: no testicular mass Skin Rashes: no rashes Neuro General: patient oriented x3, moves all extremities, no focal motor deficits and deep tendon reflexes 2+ bilaterally Romberg Test: Negative Extrem Right lower extremity: no edema Left lower extremity: no edema Psych Appearance: grossly normal Mental Status: mental status grossly normal Speech and movement: Normal speech and movement present Affect: normal affect Attitude: cooperative Thought process: Normal thought process present Thought content: Normal thought content present Insight: Good insight present (Psych) Judgement: Good judgement present (Psych) Assessment and Plan Assessment & Plan (1) Physical exam: Code(s): Z00.00 - Encounter for general adult medical examination without abnormal findings (2) Screening PSA (prostate specific antigen): Code(s): Z12.5 - Encounter for screening for malignant neoplasm of prostate Orders: Orders Comprehensive [place]. Panel Fast Today Z00.00 - Encounter for general adult medical examination without abnormal findings Lipid Panel Today Z00.00 - Encounter for general adult medical examination without abnormal findings TSH reflex Free T4 Today Z00.00 - Encounter for general adult medical examination without abnormal findings Complete Blood Count Auto Diff Today Z00.00 - Encounter for general adult medical examination without abnormal findings UA CC w/rflx Micro + Cult Today Z00.00 - Encounter for general adult medical examination without abnormal findings Prostate Specific Antigen Scr Today Z12.5 - Encounter for screening for malignant neoplasm of prostate Coding Level of Care Code Est Pt Prev Care 40-64y(78820) Diagnoses Physical exam Z00.00 Screening PSA (prostate specific antigen) Z12.5 Additional Codes SIDDHARTH-7 Assessment Billing - SIDDHARTH-7 Assessment Tool: SIDDHARTH-7 Assessment 73085 ([id number])
[2023-02-02 16:27] VITALS: BP 122/80; PULSE 63; O2SAT 98; BMI 39.5
== END 2023-02-02 17:01 | disposition home or self-care (01) ==
PROVIDERS: Visit Provider Nurse Practitioner Family
DX: Z00.00 Encounter for general adult medical examination without abnormal findings (principal); Z12.5 Encounter for screening for malignant neoplasm of prostate
CPT/HCPCS: 99396

== ENCOUNTER 2023-02-09 08:50 | Outpatient (AMB) | payer OTHER, SELFPAY ==
--- NOTE | 2023-02-09 09:08 | A.OFFVIS_ITS ---
Intake Vital Signs 02/09/23 09:14 Height 6 ft 2 in Weight 301 lb BMI 38.6 BP 141/84 H Blood Pressure Location Rt brachial Position Sitting Pulse 58 Intake Visit Reasons: S/P excision of anal lesions Intake Note: This patient presents for a post-op assessment status post excision of anal lesions. Patient denies complaints at this time. Cfo Controller Required: No Accompanied by: Self / Same As Patient Allergies codeine Allergy (Unknown, Verified 02/09/23 09:09) SOB, throat swelling Medication List - Last Reconciled 02/09/23 by Segundo Irizarry MD docusate sodium (Colace) 100 mg PO BID PRN ferrous sulfate (iron) 325 mg PO DAILY ibuprofen 600 mg PO Q6H PRN oxycodone-acetaminophen 5-325 mg (Percocet) 1 tab PO Q4-6H PRN HPI S/P excision of anal lesions HPI Details He underwent excision of anal lesions last January 27 in the operating room. He tolerated procedure well. He says that he is doing well right now and denies any significant pain. [facility] Medical History Anal lesion Chronic low back pain Iron deficiency anemia PTSD (post-traumatic stress disorder) Surgical History History of appendectomy History of excision of lesion (~2022) History of hemorrhoidectomy Hx of colonoscopy S/P lateral meniscal repair S/P tendon repair Family History Father Mental health disorder Mother Mental health disorder Sister Mental health disorder Social History Housing: House Patient Tobacco Use Status: Former Tobacco user Quit Date: 12 years ago e-Cigarette/Vaping Use: Never Used Second Hand Smoke Exposure: No Current occupational status: employed Current occupation: [employer] Current occupational exposures/hazards: Yes Cognitive needs: No Hearing needs: No Vision needs: No Review of Systems Const Denies chills and Denies fever(s) Card Denies chest pain Resp Denies cough Physical Exam Vital Signs: Last Vital Signs Pulse 58 02/09/23 09:14 BP 141/84 H 02/09/23 09:14 BMI result Body Mass Index 38.6 Const General: comfortable and no acute distress GI Other: Excision sites in the anal area are well healed, not infected, no induration, no discharge Assessment & Plan Assessment & Plan (1) Anal lesion: Code(s): K62.9 - Disease of anus and rectum, unspecified Plan: Status post excision of anal lesions. 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 I explained to him the benign nature of this pathology He is doing well and his excision sites are healing well. He can follow up on a p.r.n. basis Coding Level of Care Code Global (67343) Diagnoses Anal lesion K62.9
[2023-02-09 09:14] VITALS: BP 141/84; PULSE 58; BMI 38.6
== END 2023-02-09 09:16 | disposition home or self-care (01) ==
PROVIDERS: PCP Nurse Practitioner Family; Visit Provider Surgery
DX: K62.9 Disease of anus and rectum, unspecified (principal)
CPT/HCPCS: 99024

== ENCOUNTER → 2023-02-09 08:50 | Outpatient (BNVA) | payer OTHER, SELFPAY | PROVIDERS: PCP Nurse Practitioner Family; Visit Provider Surgery ==

== ENCOUNTER 2023-09-23 06:34 | Outpatient (REF) | payer OTHER, SELFPAY ==
[2023-09-23 11:12] LABS: MANUAL DIFF FLAG NO
[2023-09-23 11:23] LABS: Basophils Absolute Auto 0.1 X10*3/uL (0.0-0.2); Basophils Percent Auto 1.6 % (0-2); Eosinophils Absolute Auto 0.1 X10*3/uL (0.0-0.4); Eosinophils Percent Auto 2.3 % (0-4); Hematocrit 42.2 % (42.0-52.0); Hemoglobin 13.9 g/dl (14.0-18.0); Imm Gran Abs Auto 0.02 X10*3/uL (0.00-0.03); Imm Gran Pct Auto 0.5 % (0.0-0.4); Lymphocytes Absolute Auto 1.2 X10*3/uL (1.2-4.9); Lymphocytes Percent Auto 27.9 % (20-40); Mean Corpuscular HGB Conc 32.9 g/dl (31.0-36.0); Mean Corpuscular Hemoglobin 27.3 pg (27.0-33.0); Mean Corpuscular Volume 82.9 fL (80.0-98.0); Mean Platelet Volume 9.6 fL (9.4-12.4); Monocytes Absolute Auto 0.4 X10*3/uL (0.1-1.2); Monocytes Percent Auto 9.2 % (2-11); Neutrophils Absolute Auto 2.5 x10*3/uL (2.0-8.3); Neutrophils Percent Auto 58.5 % (45-73); Platelet Count 329 X10*3/uL (160-400); Red Blood Count 5.09 X10*6/uL (4.60-5.80); White Blood Count 4.3 X10*3/uL (4.8-10.8)
[2023-09-23 11:29] LABS: Appearance Urine Clear; Color Urine Yellow; Glucose Urine UA Negative (Negative); Leukocyte Esterase Urine Negative (Negative); Nitrite Urine Negative (Negative); PH 5.5 (5.0-9.0); Urine Blood Negative (Negative); Urine Ketones Negative (Negative); Urine Protein Negative (Neg-Trace)
[2023-09-23 11:42] LABS: Alanine Aminotransferase 19 U/L (0-40); Albumin Level 4.1 g/dL (3.5-5.0); Alkaline Phosphatase 86 U/L (39-117); Anion Gap 12 (12-20); Aspartate Amino Transferase 16 U/L (5-37); Bilirubin Total 0.8 mg/dL (0.0-1.0); Blood Urea Nitrogen 9 mg/dL (9-16); Calcium 9.6 mg/dL (8.4-10.2); Carbon Dioxide 26 mmol/L (22-29); Chloride 107 mmol/L (96-108); Cholesterol 161 mg/dL (<200); Estimated Glomerular Filt Rate > 60; Glucose Fasting 100 mg/dL (60-99); HDL Cholesterol 40 mg/dL (>40); LDL Cholesterol Calculated 102 mg/dL (<100); Potassium 4.4 mmol/L (3.3-5.1); Sodium 141 mmol/L (135-145); Total Protein 6.5 g/dL (6.5-8.0); Triglycerides 99 mg/dL (<150)
[2023-09-23 11:51] LABS: Prostate Specific Antigen Scr 2.07 ng/mL (<0.05-4.0)
[2023-09-23 12:01] LABS: TSH reflex Free T4 1.65 uIU/mL (0.32-4.0)
== END 2023-09-23 06:35 | disposition home or self-care (01) ==
LOC: HO.HMGCLDS 06:34
PROVIDERS: PCP Nurse Practitioner Family; Visit Provider Nurse Practitioner Family
DX: Z00.00 Encounter for general adult medical examination without abnormal findings (principal); Z12.5 Encounter for screening for malignant neoplasm of prostate; Z13.6 Encounter for screening for cardiovascular disorders
CPT/HCPCS: 36415; 80053; 80061; 81003; 84153; 84443; 85025

== ENCOUNTER 2023-09-25 12:38 | Outpatient (AMB) | payer OTHER, SELFPAY ==
[2023-09-25 12:45] VITALS: BP 132/80; PULSE 74; O2SAT 98; BMI 40.8
--- NOTE | 2023-09-25 12:45 | MHC.PC.OV ---
Vital Signs 09/25/23 12:45 Height 6 ft 2 in Weight 318 lb BMI 40.8 BP 132/80 Blood Pressure Location Lt brachial Position Sitting Pulse 74 Pulse Source Pulse Oximeter Pulse Oximetry (%) 98 Oxygen Delivery Method Room Air Intake Visit Reasons: follow up labs Intake Note: pt is here for follow up on labs Multimedia Manager Required: No Allergies codeine Allergy (Unknown, Verified 09/25/23 12:46) SOB, throat swelling Medication List - Last Reconciled 09/25/23 by AMAN Lopez ferrous sulfate (iron) 325 mg PO DAILY Tobacco use date assessed: 09/25/23 Dental Screening Dental Screen Date: 09/25/23 Did you have a dental visit in the last 12 months?: Yes Did you have a dental problem in the last 6 months where you did not have access to dental care?: No Was dental information given to patient?: Patient has dentist HPI follow up labs HPI Details Pt has a hx of anemia. He has been taking iron tabs. Pt reports doing well. Will repeat labs in 6 weeks. Denies fatigue, hematuria, and blood in stool. Hx of Q6 months derm visits, fair skinned. Pt needs a new derm and referral, will place now. Pt's fasting blood sugar was elevated. Educated on proper diet and portion sizes. [facility] Medical History Anal lesion Chronic low back pain Iron deficiency anemia PTSD (post-traumatic stress disorder) Surgical History History of excision of lesion (~2022) Hx of colonoscopy S/P tendon repair S/P lateral meniscal repair History of appendectomy History of hemorrhoidectomy Family History Father Mental health disorder Mother Mental health disorder Sister Mental health disorder Social History Housing: House Patient Tobacco Use Status: Former Tobacco user Quit Date: 12 years ago e-Cigarette/Vaping Use: Never Used Second Hand Smoke Exposure: No Current occupational status: employed Current occupation: [employer] Current occupational exposures/hazards: Yes Cognitive needs: No Hearing needs: No Vision needs: No Questionnaire PHQ-9 Over the last 2 weeks, how often have you been bothered by any of the following problems? 1. Little interest or pleasure in doing things: several days 2. Feeling down, depressed, or hopeless: several days 3. Trouble falling or staying asleep, or sleeping too much: several days 4. Feeling tired or having little energy: several days 5. Poor appetite or overeating: several days 6. Feeling bad about yourself - or that you are a failure or have let yourself or your family down: not at all 7. Trouble concentrating on things, such as reading the newspaper or watching television: several days 8. Moving or speaking so slowly that other people could have noticed. Or the opposite - being so fidgety or restless that you have been moving around a lot more than usual: not at all 9. Thoughts that you would be better off or of hurting yourself in some way: not at all Total score: 6 Depression Screening Interpretation: Negative Depression Screening Done: Yes Source: Developed by Drs. Jesus Carver, Fatoumata Oquendo, Selwyn Rose and colleagues, with an educational toby from [employer]. Thrive Questionnaire Date Thrive assessed: 09/25/23 I am a: Patient What is your living situation today?: I have a steady place to live Within the past 12 months, did the food you bought not last and you didn't have the money to get more?: Never true Within the past 12 months, did you worry whether your food would run out before you got money to buy more?: Never true Do you have trouble paying for medicines?: No Do you have trouble getting transportation to medical appointments?: No Do you have trouble paying your heating and electricity bill?: No Do you have trouble taking care of your child, family member or friend?: No Do you have trouble with day-to-day activities such as bathing, preparing meals, shopping, managing finances, etc.?: No Are you currently unemployed and looking for a job?: No Are you interested in more education?: No Please select the resources that you would like help with: None Currently or been in a relationship where the following occur: no concerns reported THRIVE Score: 0 AUDIT C Alcohol Use Questionnaire (AUDIT-C) 1. How often do you have a drink containing alcohol?: Monthly or less 2. How many drinks containing alcohol do you have on a typical day when you are drinking?: 1 or 2 3. How often do you have six or more drinks on one occasion?: Never Total Score: 1 Score Reviewed/Action Taken: Yes SIDDHARTH-7 AMB Questionnaire SIDDHARTH-7 Date SIDDHARTH - 7 assessed: 09/25/23 Feeling nervous, anxious, or on edge: 2 = More than half the days Not being able to stop or control worryin = Several days Worrying too much about different things: 1 = Several days Trouble relaxin = Several days Being so restless that it is hard to sit still: 1 = Several days Becoming easily annoyed or irritable: 2 = More than half the days Feeling afraid as if something awful might happen: 1 = Several days Total SIDDHARTH-7 score (0-4 normal; 5-9 mild; 10-14 moderate; 15-21 severe): 9 Source: Developed by Drs. Jesus Carver, Fatoumata Oquendo, Selwyn Rose and colleagues, with an educational toby from [employer]. SIDDHARTH-7 Assessment Billing SIDDHARTH-7 Assessment Tool: SIDDHARTH-7 Assessment 42691 Review of Systems Const Reports as per HPI Physical exam (Primary Care) Vital Signs: Last Vital Signs Pulse 74 09/25/23 12:45 BP 132/80 09/25/23 12:45 Pulse Ox 98 09/25/23 12:45 Oxygen Delivery Method Room Air 09/25/23 12:45 BMI result Body Mass Index 40.8 Tobacco/Smoking Status: Tobacco use Status Tobacco use date assessed 09/25/23 09/25/23 12:49 Patient Tobacco Use Status Former Tobacco user 09/25/23 12:49 e-Cigarette/Vaping Use Never Used 09/25/23 12:49 PHQ-9: PHQ-9 Score PHQ-9: Total score 6 09/25/23 13:09 Depression Screening Interpretation: Negative Thrive Assessment: Date of Thrive Assessment Date Thrive assessed 09/25/23 09/25/23 12:54 Currently or been in a relationship where the following occur: no concerns reported Const General: cooperative Nutritional Appearance: obese morbidly obese Orientation/consciousness: patient oriented x3 Resp Effort & Inspection: normal respiratory effort Auscultation: clear to auscultation bilaterally Cardio Rate: regular rate Rhythm: regular rhythm Heart sounds: S1 normal heart sound present and S2 normal heart sound present Skin Other: fair skinned, freckles throughout body Neuro General: patient oriented x3 Psych Appearance: grossly normal Mental Status: mental status grossly normal Speech and movement: Normal speech and movement present Affect: normal affect Attitude: cooperative Thought process: Normal thought process present Thought content: Normal thought content present Insight: Good insight present (Psych) Judgement: Good judgement present (Psych) Assessment and Plan Assessment & Plan (1) Anemia: Code(s): D64.9 - Anemia, unspecified Plan: Repeat labs ordered (2) Skin lesions: Code(s): L98.9 - Disorder of the skin and subcutaneous tissue, unspecified Plan: Referred to derm (3) Elevated fasting blood sugar: Code(s): R73.01 - Impaired fasting glucose Plan: Educated on proper diet and portion sizes Plan The patient agreed to the use of a biomedical engineering internship for this encounter. Scribed for AMAN Peres by Abi Botello biomedical engineering internship, on 09/25/2023 at 13:10 EST. Orders: Orders Complete Blood Count Auto Diff 6 Weeks D64.9 - Anemia, unspecified Ferritin 6 Weeks D64.9 - Anemia, unspecified IRON PROFILE 6 Weeks D64.9 - Anemia, unspecified Reticulocyte Count 6 Weeks D64.9 - Anemia, unspecified Referrals Dermatology Referral L98.9 - Disorder of the skin and subcutaneous tissue, unspecified Coding Level of Care Code Est Pt Level 3 (29876) Diagnoses Anemia D64.9 Skin lesions L98.9 Elevated fasting blood sugar R73.01 Additional Codes SIDDHARTH-7 Assessment Billing - SIDDHARTH-7 Assessment Tool: SIDDHARTH-7 Assessment 24195 ([id number]) PHQ-9 - 58225 - PHQ-9 Billing: ([id number])
== END 2023-09-25 14:51 | disposition home or self-care (01) ==
PROVIDERS: PCP Nurse Practitioner Family; Visit Provider Nurse Practitioner Family
DX: D64.9 Anemia, unspecified (principal); L98.9 Disorder of the skin and subcutaneous tissue, unspecified; R73.01 Impaired fasting glucose
CPT/HCPCS: 99213

== ENCOUNTER 2024-02-22 11:44 | Outpatient (AMB) | payer OTHER, SELFPAY ==
[2024-02-22 12:25] VITALS: BP 130/78; PULSE 76; O2SAT 97; BMI 35.8
--- NOTE | 2024-02-22 12:25 | MHC.PC.OV ---
Vital Signs 02/22/24 12:25 Height 6 ft 2 in Weight 279 lb BMI 35.8 BP 130/78 Blood Pressure Location Rt brachial Position Sitting Pulse 76 Pulse Source Pulse Oximeter Pulse Oximetry (%) 97 Intake Visit Reasons: PE Intake Note: pt is here for annual exam Area Development Manager Required: No Accompanied by: Self / Same As Patient Allergies codeine Allergy (Unknown, Verified 02/22/24 13:00) SOB, throat swelling Medication List - Last Reconciled 02/22/24 by AMAN Lopez ferrous sulfate (iron) 325 mg PO DAILY fluoxetine 30 mg PO DAILY Tobacco use date assessed: 09/25/23 Dental Screening Dental Screen Date: 09/25/23 HPI PE HPI Details Pt is here for a PE. Will order labs. Colon screen is up to date. PSA is up to date. Denies dribbling with urination, weak stream, and frequent nocturia. [facility] Medical History Anal lesion Chronic low back pain PTSD (post-traumatic stress disorder) Iron deficiency anemia Surgical History History of excision of lesion (~2022) Hx of colonoscopy S/P tendon repair S/P lateral meniscal repair History of appendectomy History of hemorrhoidectomy Family History Father Mental health disorder Mother Mental health disorder Sister Mental health disorder Social History Housing: House Patient Tobacco Use Status: Former Tobacco user e-Cigarette/Vaping Use: Never Used Second Hand Smoke Exposure: No Current occupational status: employed Current occupation: [employer] Current occupational exposures/hazards: Yes Cognitive needs: No Hearing needs: No Vision needs: No Questionnaire PHQ-9 Over the last 2 weeks, how often have you been bothered by any of the following problems? 1. Little interest or pleasure in doing things: several days 2. Feeling down, depressed, or hopeless: more than half the days 3. Trouble falling or staying asleep, or sleeping too much: several days 4. Feeling tired or having little energy: several days 5. Poor appetite or overeating: not at all 6. Feeling bad about yourself - or that you are a failure or have let yourself or your family down: more than half the days 7. Trouble concentrating on things, such as reading the newspaper or watching television: several days 8. Moving or speaking so slowly that other people could have noticed. Or the opposite - being so fidgety or restless that you have been moving around a lot more than usual: several days 9. Thoughts that you would be better off or of hurting yourself in some way: several days Total score: 10 Depression Screening Interpretation: Positive Depression Screening Done: Yes 54844 - PHQ-9 Billing: Yes Source: Developed by Drs. Jesus Carver, Fatoumata Oquendo, Selwyn Rose and colleagues, with an educational toby from [employer]. Thrive Questionnaire Date Thrive assessed: 02/22/24 I am a: Patient What is your living situation today?: I have a steady place to live Within the past 12 months, did the food you bought not last and you didn't have the money to get more?: Never true Within the past 12 months, did you worry whether your food would run out before you got money to buy more?: Never true Do you have trouble paying for medicines?: No Do you have trouble getting transportation to medical appointments?: No Do you have trouble paying your heating and electricity bill?: No Do you have trouble taking care of your child, family member or friend?: No Do you have trouble with day-to-day activities such as bathing, preparing meals, shopping, managing finances, etc.?: No Are you currently unemployed and looking for a job?: No Are you interested in more education?: No Please select the resources that you would like help with: None Currently or been in a relationship where the following occur: No concerns reported THRIVE Score: 0 AUDIT C Alcohol Use Questionnaire (AUDIT-C) 1. How often do you have a drink containing alcohol?: Monthly or less 2. How many drinks containing alcohol do you have on a typical day when you are drinking?: 5 or 6 3. How often do you have six or more drinks on one occasion?: Less than monthly Total Score: 4 Score Reviewed/Action Taken: Yes SIDDHARTH-7 AMB Questionnaire SIDDHARTH-7 Date SIDDHARTH - 7 assessed: 02/22/24 Feeling nervous, anxious, or on edge: 1 = Several days Not being able to stop or control worryin = Several days Worrying too much about different things: 1 = Several days Trouble relaxin = Several days Being so restless that it is hard to sit still: 1 = Several days Becoming easily annoyed or irritable: 2 = More than half the days Feeling afraid as if something awful might happen: 1 = Several days Total SIDDHARTH-7 score (0-4 normal; 5-9 mild; 10-14 moderate; 15-21 severe): 8 Source: Developed by Drs. Jesus Carver, Fatoumata Oquendo, Selwyn Rose and colleagues, with an educational toby from [employer]. SIDDHARTH-7 Assessment Billing SIDDHARTH-7 Assessment Tool: SIDDHARTH-7 Assessment 08344 Review of Systems Const Denies chills and Denies fever(s) Eyes Denies blurry vision ENT Denies vertigo, Denies dizziness and Denies sore throat Card Denies chest pain at rest, Denies chest pain with activity, Denies diaphoresis, Denies dyspnea and Denies dyspnea on exertion Resp Denies cough, Denies dyspnea, Denies dyspnea on exertion and Denies wheezing GI Denies abdominal pain, Denies melena, Denies hematochezia, Denies constipation, Denies diarrhea and Denies loose stools Denies hematuria Musc Denies numbness and Denies tingling Skin/Breast Denies lesions Neuro Denies vertigo, Denies dizziness, Denies numbness and Denies tingling Psych Denies anxiety, Denies depression, Denies homicidal ideation, Denies suicidal ideation and Denies other (substance abuse) Aller/Immun Denies wheezing Physical exam (Primary Care) Vital Signs: Last Vital Signs Pulse 76 02/22/24 12:25 BP 130/78 02/22/24 12:25 Pulse Ox 97 02/22/24 12:25 BMI result Body Mass Index 35.8 Tobacco/Smoking Status: Tobacco use Status Tobacco use date assessed 09/25/23 02/22/24 12:26 Patient Tobacco Use Status Former Tobacco user 02/22/24 12:26 e-Cigarette/Vaping Use Never Used 02/22/24 12:26 PHQ-9: PHQ-9 Score PHQ-9: Total score 10 02/22/24 12:55 Depression Screening Interpretation: Positive Thrive Assessment: Date of Thrive Assessment Date Thrive assessed 02/22/24 02/22/24 12:26 Currently or been in a relationship where the following occur: No concerns reported Const General: cooperative Nutritional Appearance: well nourished Orientation/consciousness: patient oriented x3 HENMT Head: Yes normal to inspection, Yes normocephalic and Yes atraumatic Ears: TM's normal bilaterally Eyes General: appearance normal, both eyes and all related structures Alignment and Position: alignment normal and position normal Neck Neck: Yes normal visual inspection and Yes no lymphadenopathy Thyroid: Thyroid normal Resp Effort & Inspection: normal respiratory effort Auscultation: clear to auscultation bilaterally Cardio Rate: regular rate Rhythm: regular rhythm Heart sounds: S1 normal heart sound present, S2 normal heart sound present and no murmurs GI Palpation (GI): Soft to palpation and nontender Auscultation: normal bowel sounds Male General Exam: Yes normal external exam Penis: normal penis Scrotum: scrotum normal, testes descended bilaterally and no inguinal hernias Testes: no testicular mass Skin Rashes: no rashes Neuro General: patient oriented x3, moves all extremities, no focal motor deficits and deep tendon reflexes 2+ bilaterally Romberg Test: Negative Psych Appearance: grossly normal Mental Status: mental status grossly normal Speech and movement: Normal speech and movement present Affect: normal affect Attitude: cooperative Thought process: Normal thought process present Thought content: Normal thought content present Insight: Good insight present (Psych) Judgement: Good judgement present (Psych) Assessment and Plan Assessment & Plan (1) Physical exam: Code(s): Z. - Encounter for general adult medical examination without abnormal findings Plan: Labs ordered Plan The patient agreed to the use of a biomedical service engineer for this encounter. Scribed for AMAN Peres by Abi Botello biomedical service engineer, on 02/22/2024 at 12:50 EST. Orders: Orders Comprehensive Met. Panel Today Z00. - Encounter for general adult medical examination without abnormal findings TSH reflex Free T4 Today Z00.00 - Encounter for general adult medical examination without abnormal findings UA CC w/rflx Micro + Cult Today Z. - Encounter for general adult medical examination without abnormal findings Medications: New meloxicam 15 mg PO DAILY PRN 30 tabs 0RF knee pain Coding Level of Care Code Est Pt Prev Care 40-64y(54329) Diagnoses Physical exam Z00.00 Additional Codes SIDDHARTH-7 Assessment Billing - SIDDHARTH-7 Assessment Tool: SIDDHARTH-7 Assessment 64049 ([id number])
== END 2024-02-22 13:17 | disposition home or self-care (01) ==
PROVIDERS: PCP Nurse Practitioner Family; Visit Provider Nurse Practitioner Family
DX: Z00.00 Encounter for general adult medical examination without abnormal findings (principal)
CPT/HCPCS: 99396

== ENCOUNTER 2024-08-24 06:43 | Outpatient (REF) | payer OTHER, SELFPAY ==
--- OUTSIDE RECORDS SUMMARY | 2024-08-24 06:45 | XMS_ITS | Continuity of Care Document ---
Author Name [facility] Organization [facility] Care Team Providers Care Military Pay Technician Name Role Phone [facility] Unavailable Unavailable Problems Combined list of problems from Department of Defense and Veterans Affairs facilities. It does not include entries that were removed or entered in error. Problem Status Onset Date Problem Type Date of Resolution Comme nts Source nicotine dependence Active Condition Do D Encounters Combined list of: 1) Encounters from Department of Veterans Affairs facilities going backup to the last 18 months, not all VA inpatient encounters are included; 2) Encounters from the Department of Defense facilities going backup to 280 months. Location Location Details Encounter Type Encounter Number Reason For Visit Attending Provider ADM Date DC Date Status Disposition Source [facility] [id number] 11/12 Released w[facility]o Limitations [facility] [id number] 11/15 Released w[facility] Limitations [facility] Social History Combined list of available smoking, tobacco, and other social history from Department of Defense and Veterans Affairs facilities. Social History Type Response Date Comment Sourc e This section is an empty social history section. DoD
--- OUTSIDE RECORDS SUMMARY | 2024-08-24 06:45 | XMS_ITS | Clinical Summary ---
Author Organization [facility] Address [address] [place] [address] Care Team Providers Care Glove Parts Inspector Name Role Phone Lester Lees MD Primary Care Provider Allergies Active Allergy Reactions Criticality Noted Date Comments Codeine Other (See Comments) 10/19/2023 It effects me too much, lasts 24-48hours Social History Tobacco Use Types Packs/Day Years Used Date Smoking Tobacco: Never Assessed Sex and Gender Information Value Date Recorded Sex Assigned at Male 10/20/2023 12:46 AM EDT Gender Identity Male 10/20/2023 12:46 AM EDT Sexual Orientation Heterosexual (straight) 10/19 12:46 AM EDT Last Filed Vital Signs Vital Sign Reading Time Taken Comments Blood Pressure 133/85 10/20/2023 2:01 AM EDT Pulse 78 10/20/2023 2:01 AM EDT Temperature 35.8 ??C (96.5 ??F) 10/19/2023 11:54 PM E DT Respiratory Rate 18 10/19/2023 11:54 PM EDT Oxygen Saturation 100% 10/20/2023 2:01 AM EDT Inhaled Oxygen Concentration - - Weight - - Height - - Body Mass Index - - Plan of Treatment Health Maintenance Due Date Last Done Comments Hepatitis C Virus Screening 1971 HIV Screening 1984 DTaP/Tdap/Td Vaccines (1 - Tdap) 1990 Hepatitis B Vaccines (1 of 3 - 19+ 3-dose series) 1990 Colonoscopy 2016 Pneumococcal Vaccines 50+ (1 of 1 - PCV) 2021 Zoster (Shingles) Vaccine (1 of 2) 2021 Influenza Vaccine 02/01/2024 COVID-19 Vaccine (2023-2 5 season) 2024 Pneumococcal Vaccine: Pediat rakesh (0-5 Years) and At-Risk Patients (6 to 49 Years) Aged Out No longer eligible b ased on patient's age to complete this topic Care Teams Glove Parts Inspector Relationship Specialty Start Date End Date Lester Lees MD [address] [place] [address] PCP - General Family Medicine 10/20/23
[2024-08-24 11:18] LABS: MANUAL DIFF FLAG NO
[2024-08-24 11:27] LABS: Basophils Percent Auto 1.1 % (0-2); Eosinophils Absolute Auto 0.1 X10*3/uL (0.0-0.4); Eosinophils Percent Auto 2.8 % (0-4); Hematocrit 43.4 % (42.0-52.0); Hemoglobin 14.5 g/dl (14.0-18.0); Imm Gran Abs Auto 0.02 X10*3/uL (0.00-0.03); Imm Gran Pct Auto 0.6 % (0.0-0.4); Immature Retic Fraction 15.4 % (2.3-13.4); Lymphocytes Percent Auto 27.8 % (20-40); Mean Corpuscular HGB Conc 33.4 g/dl (31.0-36.0); Mean Corpuscular Hemoglobin 27.6 pg (27.0-33.0); Mean Corpuscular Volume 82.7 fL (80.0-98.0); Mean Platelet Volume 9.4 fL (9.4-12.4); Monocytes Absolute Auto 0.4 X10*3/uL (0.1-1.2); Monocytes Percent Auto 12.1 % (2-11); Neutrophils Percent Auto 55.6 % (45-73); Platelet Count 240 X10*3/uL (160-400); Red Blood Count 5.25 X10*6/uL (4.60-5.80); Red Cell Distribution Width 14.5 % (11.0-16.0); Retic HGB Equivalent 34.2 pg (30.0-35.0); Reticulocyte Percent 1.5 % (0.5-1.8); Reticulocytes Absolute 0.081 X10*6/uL (0.026-0.095); White Blood Count 3.6 X10*3/uL (4.8-10.8)
[2024-08-24 11:32] LABS: Appearance Urine Clear; Color Urine Yellow; Glucose Urine UA Negative (Negative); Leukocyte Esterase Urine Negative (Negative); Nitrite Urine Negative (Negative); Specific Gravity - Urine 1.015 (1.005-1.025); Urine Blood Negative (Negative); Urine Ketones 15 mg/dL (Negative); Urine Protein Negative (Neg-Trace)
[2024-08-24 11:58] LABS: Alanine Aminotransferase 18 U/L (0-40); Alkaline Phosphatase 58 U/L (39-117); Anion Gap 13 (12-20); Aspartate Amino Transferase 27 U/L (5-37); Bilirubin Total 1.3 mg/dL (0.0-1.0); Blood Urea Nitrogen 13 mg/dL (9-16); Calcium 9.1 mg/dL (8.4-10.2); Carbon Dioxide 23 mmol/L (22-29); Chloride 108 mmol/L (96-108); Estimated Glomerular Filt Rate > 60; Glucose Random 89 mg/dL (60-115); Iron 66 mcg/dL (45-160); Percent Iron Saturation 20 % (15-50); Potassium 4.6 mmol/L (3.3-5.1); Sodium 139 mmol/L (135-145); Total Iron Binding Capacity 328 mcg/dL (228-428); Total Protein 6.6 g/dL (6.5-8.0); Unsaturated Iron Binding 262 ug/dL
[2024-08-24 12:00] LABS: Ferritin 29 ng/mL (20-250); TSH reflex Free T4 1.09 uIU/mL (0.32-4.0)
== END 2024-08-24 06:44 | disposition home or self-care (01) ==
LOC: HO.HMGCLDS 06:43
PROVIDERS: PCP Nurse Practitioner Family; Visit Provider Nurse Practitioner Family
DX: Z00.00 Encounter for general adult medical examination without abnormal findings (principal); D64.9 Anemia, unspecified
CPT/HCPCS: 36415; 80053; 81003; 82728; 83540; 84443; 85025; 85045

== ENCOUNTER 2024-08-29 12:41 | Outpatient (AMB) | payer OTHER, SELFPAY ==
[2024-08-29 12:58] VITALS: BP 130/78; PULSE 77; TEMP 36.6; O2SAT 95; BMI 36.6
--- NOTE | 2024-08-29 12:58 | MHC.PC.OV ---
Vital Signs 08/29/24 12:58 Height 6 ft 2 in Weight 285 lb BMI 36.6 BP 130/78 Blood Pressure Location Lt brachial Position Sitting Pulse 77 Pulse Source Pulse Oximeter Temp 97.8 F Temp Source Oral Pulse Oximetry (%) 95 Oxygen Delivery Method Room Air Intake Visit Reasons: 6 month Intake Note: pt is here for 6 mon f.up Steam Table Attendant Required: No Accompanied by: Self / Same As Patient Allergies codeine Allergy (Unknown, Verified 08/29/24 12:59) SOB, throat swelling Medication List - Last Reconciled 08/29/24 by Lester Lees INTERNATIONAL ACCOUNT MANAGER- ferrous sulfate (iron) 325 mg PO DAILY fluoxetine 30 mg PO DAILY meloxicam 15 mg PO DAILY PRN Tobacco use date assessed: 08/29/24 Dental Screening Dental Screen Date: 08/29/24 Did you have a dental visit in the last 12 months?: Yes Did you have a dental problem in the last 6 months where you did not have access to dental care?: No Was dental information given to patient?: Patient has dentist HPI 6 month HPI Details Chief Complaint Follow-up for leukopenia, no associated symptoms. History of Present Illness The patient is a 54-year-old male presenting with leukopenia for follow-up. He denies the presence of fever, chills, nausea, vomiting, chest pain, or shortness of breath. Joint and knee discomfort exists but is deemed insignificant. The patient maintains regular physical activity through running and reports feeling well, with no recent health changes. Continuation of blood count monitoring is planned, and if leukopenia persists, oncology referral will be considered. Social History - Exercise: Engages in regular running. - Functional Status: Active without limitation due to leukopenia or joint discomfort. Health Maintenance - Repeated CBC planned for further monitoring. Review of Systems - Constitutional: Denies fever, chills. - Gastrointestinal: Denies nausea, vomiting. - Respiratory: Denies chest pain, shortness of breath. - Musculoskeletal: Reports general aches, knee pains; Denies significant issues. Physical Exam General: Cooperative, healthy appearing, comfortable, no acute distress and well developed Orientation: Patient oriented x3 Limitations: No limitations Head: Normal to inspection Ears: Hearing grossly normal bilaterally Nose: Normal external nose present Face and sinus: Normal facial exam Eyes: Appearance normal, both eyes and all related structures Neck: Normal visual inspection and Yes full ROM Respiratory: Normal respiratory effort and able to speak in complete sentences. Clear to auscultation bilaterally Cardiovascular: Regular rate and rhythm. Normal S1 and S2 GI: Normal to inspection. Soft to palpation and nontender Skin: No rashes or lesions noted Neuro: Patient oriented x3 no edema Results Plan I plan to repeat the complete blood count CBC in the next week to monitor leukopenia. Should the condition persist, a referral to Oncology will be considered to explore further evaluation and management options. The patient is advised to maintain his exercise routine, as it does not appear to impact his condition negatively. Continuing observation is vital to address any potential changes that may necessitate intervention. Discussion Notes I discussed with the patient the significance of leukopenia and the rationale for monitoring with repeated CBCs. I explained that if leukopenia persists, a referral to Oncology would be appropriate for a more comprehensive evaluation to rule out any underlying conditions that may require specific intervention. The patient was informed about the benefits of maintaining an active lifestyle and the absence of restrictions on continuing his regular exercise routine. Follow-ups and the necessity of ongoing monitoring were also emphasized to the patient to ensure timely management of any developments. Patient Instructions - Continue regular exercise as usual. - Plan for CBC testing in the next few weeks. - Monitor for any new symptoms such as fever, chills, or unusual fatigue. - Follow up if there are any concerns or if new symptoms arise. [facility] Medical History Anal lesion Chronic low back pain PTSD (post-traumatic stress disorder) Iron deficiency anemia Surgical History History of excision of lesion (~2022) Hx of colonoscopy S/P tendon repair S/P lateral meniscal repair History of appendectomy History of hemorrhoidectomy Family History Father Mental health disorder Mother Mental health disorder Sister Mental health disorder Social History Housing: House Patient Tobacco Use Status: Former Tobacco user e-Cigarette/Vaping Use: Never Used Second Hand Smoke Exposure: No Current occupational status: employed Current occupation: [employer] Current occupational exposures/hazards: Yes Cognitive needs: No Hearing needs: No Vision needs: No Questionnaire PHQ-9 Over the last 2 weeks, how often have you been bothered by any of the following problems? 1. Little interest or pleasure in doing things: several days 2. Feeling down, depressed, or hopeless: several days 3. Trouble falling or staying asleep, or sleeping too much: several days 4. Feeling tired or having little energy: not at all 5. Poor appetite or overeating: not at all 6. Feeling bad about yourself - or that you are a failure or have let yourself or your family down: not at all 7. Trouble concentrating on things, such as reading the newspaper or watching television: several days 8. Moving or speaking so slowly that other people could have noticed. Or the opposite - being so fidgety or restless that you have been moving around a lot more than usual: not at all 9. Thoughts that you would be better off or of hurting yourself in some way: not at all Total score: 4 Depression Screening Interpretation: Negative Depression Screening Done: Yes 27597 - PHQ-9 Billing: Yes Source: Developed by Drs. Jesus Carver, Fatoumata Oquendo, Selwyn Rose and colleagues, with an educational toby from [employer]. Thrive Questionnaire Date Thrive assessed: 08/29/24 I am a: Patient What is your living situation today?: I have a steady place to live Within the past 12 months, did the food you bought not last and you didn't have the money to get more?: Never true Within the past 12 months, did you worry whether your food would run out before you got money to buy more?: Never true Do you have trouble paying for medicines?: No Do you have trouble getting transportation to medical appointments?: No Do you have trouble paying your heating and electricity bill?: No Do you have trouble taking care of your child, family member or friend?: No Do you have trouble with day-to-day activities such as bathing, preparing meals, shopping, managing finances, etc.?: No Are you currently unemployed and looking for a job?: No Are you interested in more education?: No Please select the resources that you would like help with: None Currently or been in a relationship where the following occur: No concerns reported THRIVE Score: 0 AUDIT C Alcohol Use Questionnaire (AUDIT-C) 1. How often do you have a drink containing alcohol?: Monthly or less 2. How many drinks containing alcohol do you have on a typical day when you are drinking?: 3 or 4 3. How often do you have six or more drinks on one occasion?: Less than monthly Total Score: 3 Score Reviewed/Action Taken: Yes SIDDHARTH-7 AMB Questionnaire SIDDHARTH-7 Date SIDDHARTH - 7 assessed: 08/29/24 Feeling nervous, anxious, or on edge: 0 = Not at all Not being able to stop or control worryin = Not at all Worrying too much about different things: 0 = Not at all Trouble relaxin = Not at all Being so restless that it is hard to sit still: 0 = Not at all Becoming easily annoyed or irritable: 0 = Not at all Feeling afraid as if something awful might happen: 0 = Not at all Total SIDDHARTH-7 score (0-4 normal; 5-9 mild; 10-14 moderate; 15-21 severe): 0 Source: Developed by Drs. Jesus Carver, Fatoumata Oquendo, Selwyn Rose and colleagues, with an educational toby from [employer]. SIDDHARTH-7 Assessment Billing SIDDHARTH-7 Assessment Tool: SIDDHARTH-7 Assessment 69618 Physical exam (Primary Care) Vital Signs: Last Vital Signs Temp 97.8 F 08/29/24 12:58 Pulse 77 08/29/24 12:58 BP 130/78 08/29/24 12:58 Pulse Ox 95 08/29/24 12:58 Oxygen Delivery Method Room Air 08/29/24 12:58 BMI result Body Mass Index 36.6 Tobacco/Smoking Status: Tobacco use Status Tobacco use date assessed 08/29/24 08/29/24 13:00 Patient Tobacco Use Status Former Tobacco user 08/29/24 13:00 e-Cigarette/Vaping Use Never Used 08/29/24 13:00 PHQ-9: PHQ-9 Score PHQ-9: Total score 4 08/29/24 13:04 Depression Screening Interpretation: Negative Thrive Assessment: Date of Thrive Assessment Date Thrive assessed 08/29/24 08/29/24 13:00 Currently or been in a relationship where the following occur: No concerns reported Coding Level of Care Code Est Pt Level 3 (81588) Diagnoses Leukopenia D72.819 Screening PSA (prostate specific antigen) Z12.5 Additional Codes SIDDHARTH-7 Assessment Billing - SIDDHARTH-7 Assessment Tool: SIDDHARTH-7 Assessment 99563 ([id number]) PHQ-9 - 84728 - PHQ-9 Billing: Yes ([id number]) Assessment & Plan Assessment & Plan (1) Leukopenia: Code(s): D72.819 - Decreased white blood cell count, unspecified Category: Medical (2) Screening PSA (prostate specific antigen): Code(s): Z12.5 - Encounter for screening for malignant neoplasm of prostate Category: Medical Plan . Orders: Orders Complete Blood Count Auto Diff 1 Week D72.819 - Decreased white blood cell count, unspecified Prostate Specific Antigen Scr 1 Week Z12.5 - Encounter for screening for malignant neoplasm of prostate
== END 2024-08-29 14:23 | disposition home or self-care (01) ==
PROVIDERS: PCP Nurse Practitioner Family; Visit Provider Nurse Practitioner Family
DX: D72.819 Decreased white blood cell count, unspecified (principal); Z12.5 Encounter for screening for malignant neoplasm of prostate

== ENCOUNTER → 2024-08-29 12:41 | Outpatient (BNVA) | payer OTHER, SELFPAY | PROVIDERS: PCP Nurse Practitioner Family; Visit Provider Nurse Practitioner Family | DX: D72.819 Decreased white blood cell count, unspecified (principal) | CPT/HCPCS: 96127 ==

== ENCOUNTER 2024-09-06 06:58 | Outpatient (REF) | payer OTHER, SELFPAY ==
--- OUTSIDE RECORDS SUMMARY | 2024-09-06 07:01 | XMS_ITS | Clinical Summary ---
Author Organization [facility] Address [address] [place] [address] Care Team Providers Care Gas Worker Name Role Phone Lester Lees MD Primary [...] age to complete this topic Care Teams Gas Worker Relationship Specialty Start Date End Date Lester Lees MD [address] [place] [address] PCP - General Family Medicine 10/20/23
--- OUTSIDE RECORDS SUMMARY | 2024-09-06 07:01 | XMS_ITS | Continuity of Care Document ---
Author Name [facility] Organization [facility] Care Team Providers Care Manager Technical Training Name Role Phone [facility] Unavailable Unavailable Problems [...] Date Status Disposition Source [facility] OUTPATIENT [id number] 11/12 Released w/o Limitations [facility] [id number] 11/15 Released w/o Limitations [facility] Social History Combined list of available smoking, tobacco, and other social history from Department of Defense and Veterans Affairs facilities. Social History Type Response Date Comment Sourc e This section is an empty social history section. [facility]D
[2024-09-06 10:01] LABS: MANUAL DIFF FLAG NO
[2024-09-06 10:20] LABS: Basophils Absolute Auto 0.1 X10*3/uL (0.0-0.2); Basophils Percent Auto 1.1 % (0-2); Eosinophils Absolute Auto 0.1 X10*3/uL (0.0-0.4); Eosinophils Percent Auto 1.9 % (0-4); Hematocrit 45.2 % (42.0-52.0); Hemoglobin 15.3 g/dl (14.0-18.0); Imm Gran Abs Auto 0.02 X10*3/uL (0.00-0.03); Imm Gran Pct Auto 0.4 % (0.0-0.4); Lymphocytes Percent Auto 21.1 % (20-40); Mean Corpuscular HGB Conc 33.8 g/dl (31.0-36.0); Mean Corpuscular Hemoglobin 28.1 pg (27.0-33.0); Mean Corpuscular Volume 83.1 fL (80.0-98.0); Mean Platelet Volume 9.6 fL (9.4-12.4); Monocytes Absolute Auto 0.4 X10*3/uL (0.1-1.2); Monocytes Percent Auto 8.8 % (2-11); Neutrophils Absolute Auto 3.2 x10*3/uL (2.0-8.3); Neutrophils Percent Auto 66.7 % (45-73); Platelet Count 290 X10*3/uL (160-400); Red Blood Count 5.44 X10*6/uL (4.60-5.80); Red Cell Distribution Width 14.6 % (11.0-16.0); White Blood Count 4.8 X10*3/uL (4.8-10.8)
[2024-09-06 10:53] LABS: Prostate Specific Antigen Scr 1.83 ng/mL (<0.05-4.0)
== END 2024-09-06 06:59 | disposition home or self-care (01) ==
LOC: HO.HMGCLDS 06:58
PROVIDERS: PCP Nurse Practitioner Family; Visit Provider Nurse Practitioner Family
DX: D72.819 Decreased white blood cell count, unspecified (principal); Z12.5 Encounter for screening for malignant neoplasm of prostate
CPT/HCPCS: 36415; 84153; 85025

== ENCOUNTER 2024-09-13 06:26 | Outpatient (REF) | payer OTHER, SELFPAY ==
[2024-09-13 10:55] LABS: Cholesterol 179 mg/dL (<200); HDL Cholesterol 44 mg/dL (>40); LDL Cholesterol Calculated 111 mg/dL (<100); TSH reflex Free T4 1.84 uIU/mL (0.32-4.0); Triglycerides 123 mg/dL (<150)
== END 2024-09-13 06:27 | disposition home or self-care (01) ==
LOC: HO.HMGCLDS 06:26
PROVIDERS: PCP Nurse Practitioner Family; Visit Provider Nurse Practitioner Family
DX: Z00.00 Encounter for general adult medical examination without abnormal findings (principal)
CPT/HCPCS: 36415; 80061; 84443

== ENCOUNTER 2025-03-06 14:39 | Outpatient (AMB) | payer OTHER, SELFPAY ==
[2025-03-06 15:01] VITALS: BP 138/70; PULSE 122; RESP 16; TEMP 36.8; O2SAT 97; BMI 38.9
--- NOTE | 2025-03-06 15:01 | A.OFFPC_ITS ---
Vital Signs 03/06/25 15:01 Height 6 ft 2 in Weight 303 lb BMI 38.9 BP 138/70 Blood Pressure Location Rt brachial Position Sitting Respiration 16 Pulse 122 H Pulse Source Pulse Oximeter Temp 98.2 F Temp Source Oral Pulse Oximetry (%) 97 Oxygen Delivery Method Room Air Intake Visit Reasons: PE Customer Service Correspondence Clerk Required: No Accompanied by: Self / Same As Patient Allergies codeine Allergy (Unknown, Verified 03/06/25 15:49) SOB, throat swelling Medication List - Last Reconciled 03/06/25 by JONO Lopez- ferrous sulfate (iron) 325 mg PO DAILY fluoxetine 30 mg PO DAILY meloxicam 15 mg PO DAILY PRN tirzepatide (Mounjaro) 2.5 mg (0.5 mL) subcut QWEEK Tobacco use date assessed: 03/06/25 Dental Screening Dental Screen Date: 08/29/24 HPI PE HPI Details History of Present Illness The patient is a 54-year-old male presenting for a physical examination. He has a history of obesity, described as almost morbidly obese, and has been advised to consider a GLP-1 agonist for weight management. He exercises regularly and is mindful of his diet. The patient also has elevated fasting blood glucose levels, which is being monitored. During the examination, sinus tachycardia was noted, prompting the decision to perform an EKG for further evaluation. sees derm on a regular basis Health Maintenance - Regular exercise and dietary monitorin g for weight management - Monitoring of fasting blood glucose le vels - EKG ordered due to sinus tachycardia -colon screen is up to date -psa is up to date Social History - Exercise: Engages in regular physical activity - Diet: Actively monitoring dietary inta ke Review of Systems - Cardiovascular: Denies chest pain, den ies dyspnea - Gastrointestinal: Denies abdominal brittany n, denies constipation, denies diarrhea - Psychiatric: Denies suicidal ideation, denies homicidal ideation -denies any fevers, chills Physical Exam General: Cooperative, healthy appearing, comfortable, no acute distress and well developed, obese Orientation: Patient oriented x3 Limitations: No limitations Head: Normal to inspection Ears: Hearing grossly normal bilaterally Nose: Normal external nose present Face and sinus: Normal facial exam Eyes: Appearance normal, both eyes and all related structures Neck: Normal visual inspection and Yes full ROM Respiratory: Normal respiratory effort and able to speak in complete sentences. Clear to auscultation bilaterally Cardiovascular: Normal S1 and S2, tachycardic, GI: Normal to inspection. Soft to palpation and nontender : testicles without masses/lesions and no hernias appreciated Skin: several moles, lesions ranging in color and size to chest, abd, back Neuro: Patient oriented x3 Extremities: Normal to inspection Results - Labs: PSA up to date - Screening: Colon cancer screening up t o date Plan Patient was informed and verbally consented to the use of an ambient scribe for clinic note documentation during this visit. 1. Obesity The patient is advised to consider a GLP-1 agonist to aid in weight management due to his obesity, which is described as almost morbidly obese. He is encou raged to continue regular exercise and dietary monitoring. 2. Elevated Fasting Blood Glucose The patient has elevated fasting blood glucose levels, which require ongoing monitoring. 3. Tachycardia An EKG is ordered to evaluate tachycardia. IRBBB and LAFB noted. will refer to cardiology, will order a echo and stress test Discussion Notes I discussed with the patient the importance of managing his obesity and suggested the use of a GLP-1 agonist to assist with weight loss. We also talked about the need to monitor his elevated fasting blood glucose levels and the plan to perform an EKG due to the sinus tachycardia observed during the examination. Patient Instructions - Continue regular exercise and maintain a healthy diet. - Monitor blood sugar levels as advised. - Follow up for EKG results and further evaluation of heart rate. [facility] Medical History Anal lesion Chronic low back pain PTSD (post-traumatic stress disorder) Iron deficiency anemia Surgical History History of excision of lesion (~2022) Hx of colonoscopy S/P tendon repair S/P lateral meniscal repair History of appendectomy History of hemorrhoidectomy Family History Father Mental health disorder Mother Mental health disorder Sister Mental health disorder Social History Housing: House Patient Tobacco Use Status: Former Tobacco user e-Cigarette/Vaping Use: Never Used Second Hand Smoke Exposure: No Current occupational status: employed Current occupation: [employer] Current occupational exposures/hazards: Yes Cognitive needs: No Hearing needs: No Vision needs: No Questionnaire Thrive Questionnaire Date Thrive assessed: 08/26/24 I am a: Patient What is your living situation today?: I have a steady place to live Within the past 12 months, did the food you bought not last and you didn't have the money to get more?: Never true Within the past 12 months, did you worry whether your food would run out before you got money to buy more?: Never true Do you have trouble paying for medicines?: No Do you have trouble getting transportation to medical appointments?: No Do you have trouble paying your heating and electricity bill?: No Do you have trouble taking care of your child, family member or friend?: No Do you have trouble with day-to-day activities such as bathing, preparing meals, shopping, managing finances, etc.?: No Are you currently unemployed and looking for a job?: No Are you interested in more education?: No Please select the resources that you would like help with: None Currently or been in a relationship where the following occur: No concerns reported THRIVE Score: 0 SIDDHARTH-7 AMB Questionnaire SIDDHARTH-7 Date SIDDHARTH - 7 assessed: 08/29/24 Source: Developed by Drs. Jesus Carver, Fatoumata Oquendo, Selwyn Rose and colleagues, with an educational toby from [employer]. Physical exam (Primary Care) Vital Signs: Last Vital Signs Temp 98.2 F 03/06/25 15:01 Pulse 122 H 03/06/25 15:01 Resp 16 03/06/25 15:01 BP 138/70 03/06/25 15:01 Pulse Ox 97 03/06/25 15:01 Oxygen Delivery Method Room Air 03/06/25 15:01 BMI result Body Mass Index 38.9 Tobacco/Smoking Status: Tobacco use Status Tobacco use date assessed 03/06/25 03/06/25 15:06 Patient Tobacco Use Status Former Tobacco user 03/06/25 15:06 e-Cigarette/Vaping Use Never Used 03/06/25 15:06 Thrive Assessment: Date of Thrive Assessment Date Thrive assessed 08/26/24 03/06/25 15:06 Currently or been in a relationship where the following occur: No concerns reported Coding Level of Care Code Est Pt Level 3 (45045) Est Pt Prev Care 40-64y(96915) Diagnoses Elevated fasting blood sugar R73.01 Obesity E66.9 Encounter for routine adult physical exam with abnormal findings Z00.01 Tachycardia R00.0 Abnormal EKG R94.31 Assessment & Plan Assessment & Plan (1) Elevated fasting blood sugar: Code(s): R73.01 - Impaired fasting glucose Category: Medical (2) Obesity: Code(s): E66.9 - Obesity, unspecified Category: Medical (3) Encounter for routine adult physical exam with abnormal findings: Code(s): Z00.01 - Encounter for general adult medical examination with abnormal findings Category: Medical (4) Tachycardia: Code(s): R00.0 - Tachycardia, unspecified Category: Medical (5) Abnormal EKG: Comment: RBBB and LAFB Code(s): R94.31 - Abnormal electrocardiogram [ECG] [EKG] Category: Medical Plan . Orders: Orders Complete Blood Count Auto Diff Today E66.9 - Obesity, unspecified, R73.01 - Impaired fasting glucose AMB EKG-In Office Today Z00.01 - Encounter for general adult medical examination with abnormal findings NM cardiolite stress test Today R94.31 - Abnormal electrocardiogram [ECG] [EKG] Comprehensive Temple. Panel Fast Today E66.9 - Obesity, unspecified, R73.01 - Impaired fasting glucose TSH reflex Free T4 Today E66.9 - Obesity, unspecified, R73.01 - Impaired fasting glucose UA CC w/rflx Micro + Cult Today E66.9 - Obesity, unspecified, R73.01 - Impaired fasting glucose Lipid Panel Today E66.9 - Obesity, unspecified, R73.01 - Impaired fasting glucose ECG 12 lead EKG 12/23/24 R00.0 - Tachycardia, unspecified, Z00.00 - Encounter for general adult medical examination without abnormal findings CA echo transthorac w con Today R94.31 - Abnormal electrocardiogram [ECG] [EKG] CA stress test Today R94.31 - Abnormal electrocardiogram [ECG] [EKG] Referrals Cardiology Referral R94.31 - Abnormal electrocardiogram [ECG] [EKG] Medications: New tirzepatide (Mounjaro) for 4 weeks 2.5 mg (0.5 mL) subcut QWEEK 2 mL 0RF
--- OUTSIDE RECORDS SUMMARY | 2025-03-06 15:54 | XMS_ITS ---
Author Name [facility] Organization Unknown Encounters Encounter Type Encounter Reason Primary Diagnosis Location Date [facility] 01/24/2024 Emergency Weakness Weakness [facility]ly [facility] [employer] 10/19/2023 Care Team Organization Name Specialty Phone Email Start Date End [facility] 01/01 [facility] 10/21/2023 09/18/2024 [facility] 10/20/2023
--- OUTSIDE RECORDS SUMMARY | 2025-03-06 15:54 | XMS_ITS | Clinical Summary ---
Author Organization [facility] Address [address] [place] [address] Care Team Providers Care Placement Director Name Role Phone Lester Lees MD Primary Care Provider Allergies Active Allergy Reactions Criticality Noted Date Comments Codeine Other (See Comments) 10/19/2023 It effects me too much, lasts 24-48hours Social History Tobacco Use Types Packs/Day Years Used Date Smoking Tobacco: Never Assessed Sex and Gender Information Value Date Recorded Sex Assigned at Male 10/20/2023 12:46 AM EDT Legal Sex Male 11:48 PM EDT Gender Identity Male 10/20/2023 12:46 AM EDT Sexual Orientation Heterosexual (straight) 10/19 12:46 AM EDT Last Filed Vital Signs Vital Sign Reading Time Taken Comments Blood Pressure 133/85 10/20/2023 2:01 AM EDT Pulse 78 10/20/2023 2:01 AM EDT Temperature 35.8 C (96.5 F) 10/19/2023 11:54 PM EDT Respiratory Rate 18 10/19/2023 11:54 PM EDT [...] (1 of 3 - 19+ 3-dose series) 03/03 Colonoscopy 2016 Pneumococcal Vaccines 50+ (1 of 1 - PCV) 2021 Zoster (Shingles) Vaccine (1 of 2) 2021 COVID-19 Vaccine (2023- season) 2024 Influenza Vaccine 01/31/2025 Insurance [facility] Care Teams Placement Director Relationship Specialty Start Date End Date Lester Lees MD [address] [place] [address] PCP - General Family Medicine 10/20/23
== END 2025-03-06 16:13 | disposition home or self-care (01) ==
LOC: HO.HMCC 14:40
PROVIDERS: PCP Nurse Practitioner Family; Visit Provider Nurse Practitioner Family
DX: Z00.01 Encounter for general adult medical examination with abnormal findings (principal); R73.01 Impaired fasting glucose; E66.9 Obesity, unspecified; Z68.38 Body mass index [BMI] 38.0-38.9, adult; R00.0 Tachycardia, unspecified; R94.31 Abnormal electrocardiogram [ECG] [EKG]

== ENCOUNTER → 2025-04-30 08:35 | Outpatient (REF) | payer OTHER, SELFPAY ==
--- NOTE | 2025-04-30 08:38 | CA_ITS ---
Transthoracic Echocardiogram Patient (Last, First, Middle): Lan Worrell J Gender: Male Date of : 1970 Age: 55 Procedure Date: 04/30/2025 Procedure Type: Transthoracic Echocardiogram Location: OP Height: 187.96 cm Weight: 137.44 kg BSA: 2.59 m2 Heart Rate: 63 bpm BP: 130 / 72 mmHg [employer] Power Plant Manager: TO Referring MD: Lester Lees [facility] Symptoms: R94.31 - Abnormal electrocardiogram [ECG] [EKG] Study Quality: Adequate ECG Rhythm: Sinus Conclusions: - The left ventricular systolic function is low normal. The calculated ejection fraction is 53% by biplane method. - No obvious valvular pathology seen on this study. Findings Left Ventricle Normal left ventricular cavity size. There is mildly increased left ventricular wall thickness. The left ventricular systolic function is low normal. The calculated ejection fraction is 53% by biplane method. There is no evidence of regional wall motion abnormalities. Diastolic function is normal for age. Right Ventricle Mildly increased right ventricular cavity size. There is normal right ventricular systolic function. Atria Both atria are normal in size. Aortic Valve There is a normal trileaflet aortic valve. There is no aortic valve stenosis. There is trace (trivial) aortic valve regurgitation. Mitral Valve The mitral valve appears normal. There is no mitral valve regurgitation. There is no mitral valve stenosis. Pulmonic Valve The pulmonic valve is likely normal. Tricuspid Valve There is trace tricuspid valve regurgitation. There is no evidence of pulmonary hypertension. Great Vessels The asc aorta is normal in size. Venous The inferior vena cava is normal in size and collapses greater than 50% with inspiration. Pericardium/Pleural There is no evidence of pericardial effusion. Prior Study Comparison No prior study available for comparison. Recommendations, Care & Conclusions No obvious valvular pathology seen on this study. Measurements 2D Linear Measurements IVSd: 1.18 0.6-0.9/0.6-1.0 cm LVIDd: 4.83 3.9-5.3/4.2-5.9 cm LVIDd Index: 1.86 2.4-3.2/2.2-3.1 cm/m2 LVIDs: 3.27 2.0-3.6 cm LVPWd: 1.11 0.7-1.1 cm LA Diam: 4.00 2.7-3.8/3.0-4.0 cm LAIDs Index: 1.54 1.5-2.3 cm/m2 LV Mass: 258.20 67-162/88-224 g LV Mass Index: 99.69 43-95/49-115 g/m2 LVOT Diam: 2.60 3.0+(-)1.3 cm 2D Systolic Function EF 4C: 52.70 >55% EF 2C: 54.40 >55% EF BiP: 52.70 >55% Mitral Valve MV Pk E: 0.59 MV PK A: 0.42 MV Decel Time: 230.00 E/A: 1.40 E'Lateral: 8.49 E'Medial: 5.44 E/E' Med: 10.80 E/E' Lat: 6.90 PHT: 67.00 MVA PHT: 3.28 Decel [place]: 2.55 Aortic Valve AoV Pk Devon: 1.11 AoV Mn Devon: 0.82 AoV VTI: 0.27 AoV Pk Grad: 5.00 Aov Mn Grad: 3.00 KIM Cont.VTI: 4.23 LVOT LVOT Pk Devon: 1.04 LVOT Mn [place]: 0.72 LVOT VTI: 0.21 LVOT Pk Grad: 4.00 LVOT Mn Grad: 2.00 LVOT Diam: 2.60 LVOT Area: 5.31 Diastolic Function MV Pk E: 0.59 MV Pk A: 0.42 E/A: 1.40 E'Medial: 5.44 E/E' Med: 10.80 E' Laterial: 8.49 E/E' Lat: 6.90 Right Ventricle TAPSE (mm): 21.10 TVS' Devon: 14.80 Tricuspid Valve TR Pk Devon: 2.07 TR Pk Grad: 17.00 RA Press: 3.00 RVSP: 20.00 Great Vessels Aorta Sinus of Valsalva: 4.13 2.0-3.5 cm Ao Asc: 3.60 2.1-3.4 cm Updated in Other Vendor System with Status of Final Kimani Nina MD electronically signed on 05/01/2025 12:53:46 PM with status of Final
--- OUTSIDE RECORDS SUMMARY | 2025-04-30 09:07 | XMS_ITS | Clinical Summary ---
Author Organization [facility] Address [address] [place] [address] Care Team Providers Care Dust Box Worker Name Role Phone Lester Lees MD [...] Vaccine (1 of 2) 2021 Influenza Vaccine 01/31/2025 COVID-19 Vaccine (2023- season) 2025 RSV Vaccine 50 years and old er and Patients (1 - 1-dose 75+ series) 2046 Insurance [facility] Care Teams Dust Box Worker Relationship Specialty Start Date End Date Lester Lees MD [address] [facility] [place] [address] PCP - General Family Medicine 10/20/23
== END ==
LOC: HO.CARD 08:35
PROVIDERS: PCP Nurse Practitioner Family; Visit Provider Nurse Practitioner Family
DX: R94.31 Abnormal electrocardiogram [ECG] [EKG] (principal)
CPT/HCPCS: 93306

== ENCOUNTER → 2025-04-30 08:38 | Outpatient (BNV) | payer OTHER, SELFPAY | PROVIDERS: PCP Nurse Practitioner Family; Visit Provider Internal Medicine | DX: R94.31 Abnormal electrocardiogram [ECG] [EKG] (principal) | CPT/HCPCS: 93306 ==

== ENCOUNTER → 2025-05-12 08:15 | Outpatient (REF) | payer OTHER, SELFPAY ==
--- NOTE | ~2025-05-12 | NM_ITS ---
EXERCISE MYOCARDIAL PERFUSION STUDY INDICATION: Abnormal EKG to evaluate for myocardial ischemia TECHNIQUE: The patient was brought in for an exercise perfusion study on 05/12/2025. Patient performed exercise as per Wade protocol and was injected 45 mCi of sestamibi once target heart rate was achieved. Images were obtained using the SPECT gamma camera interlaced with the gating device. Images were obtained in supine position. Resting perfusion study was performed on 05/16/2025. Patient was administered 45 mCi of sestamibi intravenously at rest. Images were then obtained in supine position. Images were processed with the software and compared side to side in short axis, horizontal long axis and vertical long axis views. Images obtained without without CT attenuation. Total DLP 87 mGy-cm. FINDINGS: Raw images were reviewed The stress perfusion study showed nonattenuated images show mildly to moderately reduced uptake in the inferior wall as well as mildly reduced uptake in the basal and mid inferolateral wall of the LV myocardium. Attenuated corrected images show mildly to moderately reduced uptake in the inferior wall of the LV myocardium.. The gated study shows normal LV systolic function with calculated LVEF of 58%. LV cavity is normal in size. The gated study shows normal systolic wall thickening and contraction of segments. Resting study shows both attenuated as well as nonattenuated corrected images show improved uptake in the inferior wall of the LV myocardium. Gating at rest reveals normal systolic wall motion with ejection fraction at 58%. The findings are consistent with moderate size moderate intensity inferior wall ischemia in RCA territory. NM/NM cardiolite stress test IMPRESSION: 1. Myocardial perfusion imaging study shows inferior wall ischemia. 2. Gated LVEF is 58%. 3. Transient ischemic dilatation not present. EKG revealed negative for ischemia. Electronically signed by: Edward Arana MD 05/17/2025 01:05 PM [facility]
--- NOTE | 2025-05-12 08:17 | CA_ITS ---
Acquisition Time: 2025-05-12 08:24:05 Total Exercise Time: 00:07:16 Test Indications: ABNORMAL EKG Medications: Protocol: FABI Max HR: 166 BPM 100% of Pred: 166 BPM Max BP: 134/84 mmHG Max Work Load: 8.9 METS Exercise stress test with exercise 7 mins 16 secs of Fabi Protocol, achieving 100% MPHR, with mild SOB, no CP, with isolated PVCs, with normotensive response to exercise. Without any EKG changes meeting criteria for ischemia. In recovery, pt's breathing returned to baseline. Nuclear images pending. Test reviewed with Dr. Arana. Referred By: Lester Lees Electronically Signed By: Cristobal Dwyer
--- OUTSIDE RECORDS SUMMARY | 2025-05-12 08:40 | XMS_ITS | Clinical Summary ---
Author Organization [facility] Address [address] [place] [address] Care Team Providers Care Real Estate Broker Name Role Phone Lester Lees MD Primary [...] (1 - 1-dose 75+ series) 2046 Insurance [facility] Care Teams Real Estate Broker Relationship Specialty Start Date End Date Lester Lees MD [address] [facility] [place] [address] PCP - General Family Medicine 10/20/23
== END ==
LOC: HO.CARD 08:15
PROVIDERS: PCP Nurse Practitioner Family; Visit Provider Nurse Practitioner Family
DX: R94.31 Abnormal electrocardiogram [ECG] [EKG] (principal)
CPT/HCPCS: 78452; 93017; A9500

== ENCOUNTER → 2025-05-12 08:17 | Outpatient (BNV) | payer OTHER, SELFPAY | PROVIDERS: PCP Nurse Practitioner Family | DX: I49.3 Ventricular premature depolarization (principal); R06.02 Shortness of breath | CPT/HCPCS: 78452; 93016; 93018 ==